=== PATIENT | male | born 1940 | race Caucasian/White ===

== ENCOUNTER 2019-01-16 11:07 | Inpatient (IN) | payer MEDICARE, MEDICAID ==
[~2019-01-16] VITALS: Ht 165.1 cm; Wt 70.3 kg
[2019-01-16 11:30] LABS: ABSOLUTE BASOPHILS 0.1 thou/uL (0.0-0.2); ABSOLUTE EOSINOPHILS 0.1 thou/uL (0.0-0.7); ABSOLUTE MONOCYTES 0.6 thou/uL (0.0-1.2); ABSOLUTE NEUTROPHILS 6.1 thou/uL (1.6-8.1); BASOPHILS 0.9 %; HEMATOCRIT 35.3 % (42.0-52.0); HEMOGLOBIN 12.1 gm/dL (14.0-18.0); LYMPHOCYTES 12.5 %; MCH 28.2 pg (26.0-34.0); MCHC 34.2 g/dL (28.0-37.0); MCV 82.6 fL (80.0-100.0); MONOCYTES 7.5 %; MPV 8.2 fl. (7.2-11.1); NUCLEATED RBCS 0 /100WBC; PLATELET COUNT* 225 thou/uL (150-400); POLYS 78.1 %; RBC 4.27 mil/uL (4.50-6.00); RDW-CV 15.7 % (10.5-14.5); WBC 7.9 thou/uL (4.0-11.0)
[2019-01-16 11:43] VITALS: BP 205/77
[2019-01-16 12:48] LABS: APTT 27.5 Seconds (25.0-31.3); PROTIME 10.7 Seconds (9.20-11.50)
[2019-01-16 13:16] LABS: URINE BILIRUBIN NEGATIVE (Negative); URINE BLOOD NEGATIVE (Negative); URINE CLARITY CLEAR; URINE COLOR YELLOW; URINE GLUCOSE-RANDOM NEGATIVE (Negative); URINE KETONES NEGATIVE (Negative); URINE LEUKOCYTES NEGATIVE (Negative); URINE NITRITE NEGATIVE (Negative); URINE PROTEIN NEGATIVE (Negative); URINE SPECIFIC GRAVITY 1.025 (1.005-1.030); URINE UROBILINOGEN 0.2 E.U./dl (0.2-1.0)
[2019-01-16 13:39] LABS: CALCIUM 8.5 mg/dL (8.5-10.1); POTASSIUM 3.8 mmol/L (3.5-5.1); TOTAL BILIRUBIN 0.3 mg/dL (<0.1-1.0); TOTAL PROTEIN 7.2 g/dL (6.4-8.2)
[2019-01-16 16:54] VITALS: BP 148/66
[2019-01-16 17:30] VITALS: BP 160/57
--- NOTE | 2019-01-16 18:38 | NUR ---
INITAL ASSESSMENT COMPLETED CHARTED. VSS. TRACING SR PVC'S ON MONITOR. NIH =2. PT DENIES SOA, N/V/D, CP. PT C/O RIGHT LEG PAIN THAT HE REPORTS HE HAS HAD FOR MONTHS BUT PAIN HAS GTTEN WORSE. HOURLY ROUNDING AND FALL PRECAUTIONS IN PLACE FOR PT SAFETY. CLWR.
--- NOTE | 2019-01-16 19:03 | 2DMMODE ---
[place] [address] 2 D/M-MODE ECHOCARDIOGRAM Name: DIANE ESTRADA Room: [address] [facility]#: [id number] Admission: 01/16/19 Attend Phys: Naseem Brennan, Discharge: Date of : 40 Date of Service: 01/16/19 1902 Report #: [id number] THIS REPORT FOR: //name// APPROVED REPORT Study performed: 01/16/2019 14:43:34 EXAM: Comprehensive 2D, Doppler, and color-flow Echocardiogram Patient Location: In-Patient Room #: er Status: stat BSA: 1.87 HR: 57 bpm BP: 178/72 mmHg Rhythm: NSR Other Information Study Quality: Good Indications CVA/TIA Echo Enhancing Agent Indication: Rule out Shunt Agent(s) / Amount(s) Used: Agitated Saline 10 cc 2D Dimensions IVSd: 10.42 (7-11mm) LVOT Diam: 18.81 (18-24mm) LVDd: 39.93 mm PWd: 12.19 (7-11mm) Ascending Ao: 29.74 (22-36mm) LVDs: 23.84 (25-40mm) Aortic Root: 35.46 mm Volumes Left Atrial Volume (Systole) LA ESV Index: 29.00 mL/m2 Aortic Valve AoV Peak Dagoberto.: 1.27 m/s AO Peak Gr.: 6.46 mmHg LVOT Max P.78 mmHg AO Mean Gr.: 3.51 mmHg LVOT Mean P.95 mmHg LVOT Max V: 0.97 m/s AO V2 VTI: 26.32 cm LVOT Mean V: 0.64 m/s MANPREET (VTI): 2.57 cm2 LVOT V1 VTI: 24.34 [place] [address] 2 D/M-MODE ECHOCARDIOGRAM Name: DIANE ESTRADA Room: [address] IN ..#: [id number] Admission: 01/16/19 Attend Phys: Naseem Brennan, Discharge: Date of : 40 Date of Service: 01/16/19 1902 Report #: [id number] Mitral Valve E/A Ratio: 0.64 MV Decel. Time: 235.67 ms MV E Max Dagoberto.: 0.85 m/s MV PHT: 68.34 ms MVA (PHT): 3.22 cm2 TDI E/Lateral E': 10.63 E/Medial E': 17.00 Medial E' Dagoberto.: 0.05 m/s Lateral E' Dagoberto.: 0.08 m/s Pulmonary Valve PV Peak Dagoberto.: 0.94 m/s PV Peak Gr.: 3.52 mmHg Tricuspid Valve RAP Estimate: 5.00 mmHg TR Peak Gr.: 28.14 mmHg RVSP: 33.00 mmHg PA Pressure: 33.00 mmHg Left Ventricle The left ventricle is normal size. There is normal LV segmental wall motion. Borderline concentric left ventricular hypertrophy. Left ventricular systolic function is normal. The left ventricular ejection fraction is within the normal range. LVEF is 60-65%. Grade I - abnormal relaxation pattern. Right Ventricle The right ventricle is normal size. The right ventricular systolic function is normal. Atria The left atrium size is normal. Interatrial septum is intact without evidence of ASD or PFO. The right atrium size is normal. Aortic Valve Mild aortic valve sclerosis. Mild aortic regurgitation. There is no aortic valvular stenosis. Mitral Valve There is mitral annular calcification. Mild mitral regurgitation. No evidence of mitral valve stenosis. Tricuspid Valve The tricuspid valve is normal in structure. Moderate tricuspid regurgitation. [place] [address] 2 D/M-MODE ECHOCARDIOGRAM Name: DIANE ESTRADA Room: [address] [place] [facility]#: [id number] Admission: 01/16/19 Attend Phys: Naseem Brennan, Discharge: Date of : 40 Date of Service: 01/16/19 1902 Report #: [id number] Pulmonic Valve The pulmonary valve is normal in structure. There is no pulmonic valvular regurgitation. Great Vessels The aortic root is normal in size. IVC is normal in size and collapses >50% with inspiration. Pericardium There is no pericardial effusion. <Conclusion> The left ventricle is normal size. Borderline concentric left ventricular hypertrophy. Left ventricular systolic function is normal. The left ventricular ejection fraction is within the normal range. LVEF is 60-65%. Grade I - abnormal relaxation pattern. The right ventricle is normal size. The left atrium size is normal. Mild aortic valve sclerosis. Mild aortic regurgitation. There is no aortic valvular stenosis. There is mitral annular calcification. Mild mitral regurgitation. No evidence of mitral valve stenosis. The tricuspid valve is normal in structure. Moderate tricuspid regurgitation. Mild pulmonary hypertension. IVC is normal in size and collapses >50% with inspiration. There is no pericardial effusion. There is normal LV segmental wall motion. Interatrial septum is intact without evidence of ASD or PFO. <ELECTRONICALLY SIGNED> By: Carlos A Nunez MD, FACC 01/16/191901 01 01 Carlos A Nunez MD, FACC /INF
--- NOTE | 2019-01-16 19:57 | EKG ---
[place] [address] ELECTROCARDIOGRAM REPORT Name: DIANE ESTRADA Room: [address] ADM IN M.R.#: [id number] Admission: 01/16/19 Attend Phys: Naseem Brennan MD Discharge: Date of : 40 Report #: [id number] THIS REPORT FOR: //name// 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 01/16/191955 1131 1131 Manuel Keith MD, FACC /EPI
[2019-01-16 20:20] VITALS: BP 127/55
[2019-01-17] VITALS: BP 108/54
[2019-01-17 04:00] VITALS: BP 138/46
--- NOTE | 2019-01-17 05:18 | NUR ---
ASSUMED CARE AT 2020H,ON RA AND TOLERATED.HIH OF 2.STILL WITH STUTTERING AND COMPLAIN OF BILATERAL THIGH.NOTED WITH GOOD PEDAL PULSE AND NO EDEMA.CONTINUE MONITORING AND TOWARD GOALS.CALL LIGHT WITHIN REACH.PT CAN WALK TO RESTROOM WITH THE USE OF HIS CANE.
[2019-01-17 05:29] LABS: CALCIUM 8.3 mg/dL (8.5-10.1); CREATININE 1.1 mg/dL (0.6-1.3); MAGNESIUM 1.9 mg/dL (1.8-2.4); POTASSIUM 4.1 mmol/L (3.5-5.1)
[2019-01-17 06:05] LABS: CHOLESTEROL 140 mg/dL (<200); HDL CHOLESTEROL 37 mg/dL (>40); LDL CHOLESTEROL 95 mg/dL (<100); SERUM ASSESSMENT Clear; TC:HDL 3.8 Ratio (Not establshd); TRIGLYCERIDE 42 mg/dL (<150); VLDL 8 mg/dL (<40)
[2019-01-17 07:00] VITALS: BP 140/74
--- NOTE | 2019-01-17 09:20 | NUR ---
INITIAL ASSESSMENT COMPLETED CHARTED. VSS. TRACING SR ON MONITOR. PT C/O OF BILATERAL THIGH PAIN. HOURLY ROUNDING AND FALL PRECAUTIONS IN PLACE FOR PT SAFETY. REFER TO COMPUTER CHARTING FOR FURTHER DETAILS. CLWR.
[2019-01-17 12:06] VITALS: BP 135/48
[2019-01-17 16:12] VITALS: BP 150/66
[2019-01-17 20:00] VITALS: BP 134/56
[2019-01-18] VITALS: BP 143/40
[2019-01-18 04:00] VITALS: BP 105/43
--- NOTE | 2019-01-18 04:51 | NUR ---
PT HAD C/O TO BILAT THIGHS WITH RELIEF WITH TOP MEDICATIONS. NO OTHER CONCERNS NOTED BY PT. CURRENTLY ASLEEP IN BED WITH BED ALRAM ON AND CALL LIGHT WITHIN REACH.
[2019-01-18 07:02] VITALS: BP 162/61
--- NOTE | 2019-01-18 08:24 | NUR ---
INITAL ASSESSMENT COMPLETED CHARTED. VSS. TRACING SR ON MONITOR. PT C/O ACHING IN BILATERAL HANDS. REFER TO COMPUTER CHARTING FOR FURTHER DETAILS. HOURLY ROUNDING AND FALL PRECAUTIONS IN PLACE FOR PT SAFETY. CLWR.
[2019-01-18 12:00] VITALS: BP 174/51
[2019-01-18 16:00] VITALS: BP 168/68
[2019-01-18 20:00] VITALS: BP 177/71
--- NOTE | 2019-01-18 20:00 | NUR ---
RECEIVED REPORT AND ASSUMED CARE OF PT, ASSESSMENT COMPLETED. PT SITTING UP IN CHAIR. VERY LOUD VOICE WHEN TALKING. HAPPY THAT HE WILL BE GOING TO [facility] TOM[facility]. ATTEMPTED TO EXPLAIN HE HAD TO QUALIFY AND BE APPROVED. KYM. NEURO WNL. TELEMETRY ON SHOWING SR. WILL CONT TO MONITOR AND ASSIST NEEDED.
--- NOTE | 2019-01-19 00:04 | NUR ---
RECIEVED REPORT FROM LORRAINE REECE RN AND ASSUMED CARE OF PT AT 2300.
--- NOTE | 2019-01-19 00:07 | NUR ---
PT ARRIVED TO ROOM 207 AND ADMITTED TO FLOOR AT 2315. PT ALERT AND ORIENTED X4. PT REPORTS BREATHING BETTER AFTER RECIEVING BREATHING TREATMENTS IN ED. PT DENIES PAIN OR DISCOMFORT AT THIS TIME. PT ORIENTED TO ROOM, CALL LIGHT AND BED CONTROLS. PT INSTRUCTED TO CALL STAFF BEFORE GETTING UP. CALL LIGHT IN REACH, PT DEMONSTRATES PROPER USE.
[2019-01-19 00:47] VITALS: BP 180/75
[2019-01-19 04:57] VITALS: BP 156/86
[2019-01-19 08:00] VITALS: BP 190/75
[2019-01-19] MEDS ORDERED: EXTRA STRENGTH85 GM TOP (10:50)
[2019-01-19] MEDS ORDERED: CLOPIDOGREL75 MG PO (10:50)
[2019-01-19] MEDS ORDERED: LIPITOR40 MG PO (10:50)
[2019-01-19] MEDS ORDERED: VITAMIN B-12500 MCG PO (10:50)
[2019-01-19] MEDS ORDERED: COENZYME Q-1030 MG PO (10:50)
[2019-01-19] MEDS ORDERED: ANECREAM5 GM TOP (10:50)
[2019-01-19] MEDS ORDERED: ADULT LOW DOSE81 MG PO (10:50)
[2019-01-19] MEDS ORDERED: THERA M PLUS T1 EAC2 PO (10:50)
[2019-01-19] MEDS ORDERED: LISINOPRIL5 MG PO (10:51)
[2019-01-19] MEDS ORDERED: HYDROCHLOROTHIA25 M2 PO (10:51)
--- NOTE | 2019-01-19 11:53 | NUR ---
Pt is A&O. Resides at home with family friends. Independent and active. Pt uses a cane for mobility. No hx of HH or SNF. Pt discharging today to [facility]. CM has repeatedly attempted to contact Pt's emergency contact, Waqar العلي, but the phone continues to ring busy. Faxed dc orders. Chart copied. Nurse report number is [phone]. Facility to berry picker Pt at 130pm
[2019-01-19 12:07] VITALS: BP 190/75
[2019-01-19 12:54] VITALS: BP 174/84
== END 2019-01-19 13:39 | DRG 69 ==
LOC: M.ERS 11:07 → M.TBA-ER 12:59 → M.2W 12:59
PROVIDERS: Family Medicine; ADMIT Internal Medicine
DX: G45.9 Transient cerebral ischemic attack, unspecified (principal); I16.1 Hypertensive emergency; I10 Essential (primary) hypertension; F98.5 Adult onset fluency disorder; I25.10 Atherosclerotic heart disease of native coronary artery without angina pectoris; E11.40 Type 2 diabetes mellitus with diabetic neuropathy, unspecified; K27.9 Peptic ulcer, site unspecified, unspecified as acute or chronic, without hemorrhage or perforation; E11.51 Type 2 diabetes mellitus with diabetic peripheral angiopathy without gangrene; E78.5 Hyperlipidemia, unspecified; I49.3 Ventricular premature depolarization; M79.18 Myalgia, other site; M79.605 Pain in left leg; M79.604 Pain in right leg; R53.81 Other malaise; M19.90 Unspecified osteoarthritis, unspecified site; Z87.891 Personal history of nicotine dependence

== ENCOUNTER 2019-04-15 06:12 | Inpatient (IN) | payer MEDICARE, MEDICAID ==
[~2019-04-15] VITALS: Ht 152.4 cm; Wt 70.8 kg
[~2019-04-15 06:12] MED LIST: ADULT LOW DOSE81 MG PO; ANECREAM5 GM TOP; CLOPIDOGREL75 MG PO; COENZYME Q-1030 MG PO; EXTRA STRENGTH85 GM TOP; HYDROCHLOROTHIA25 M2 PO; LIPITOR40 MG PO; LISINOPRIL5 MG PO; THERA M PLUS T1 EAC2 PO; VITAMIN B-12500 MCG PO
[2019-04-15 06:14] VITALS: BP 140/86
[2019-04-15] MEDS ORDERED: PROAIR HFA8.5 GM INH (06:21)
[2019-04-15 06:38] LABS: ABSOLUTE BASOPHILS 0.1 thou/uL (0.0-0.2); ABSOLUTE EOSINOPHILS 0.1 thou/uL (0.0-0.7); ABSOLUTE LYMPHOCYTES 0.9 thou/uL (0.8-5.3); ABSOLUTE MONOCYTES 0.6 thou/uL (0.0-1.2); ABSOLUTE NEUTROPHILS 7.6 thou/uL (1.6-8.1); BASOPHILS 0.8 %; EOSINOPHILS 1.4 %; HEMATOCRIT 30.2 % (42.0-52.0); HEMOGLOBIN 10.5 gm/dL (14.0-18.0); LYMPHOCYTES 9.2 %; MCH 29.2 pg (26.0-34.0); MCHC 34.9 g/dL (28.0-37.0); MCV 83.9 fL (80.0-100.0); MONOCYTES 6.8 %; MPV 7.5 fl. (7.2-11.1); NUCLEATED RBCS 0 /100WBC; PLATELET COUNT* 252 thou/uL (150-400); POLYS 81.8 %; RDW-CV 15.7 % (10.5-14.5); WBC 9.3 thou/uL (4.0-11.0)
[2019-04-15 06:47] LABS: CALCIUM 8.1 mg/dL (8.5-10.1); CREATININE 1.2 mg/dL (0.6-1.3); POTASSIUM 3.6 mmol/L (3.5-5.1)
[2019-04-15 06:50] LABS: PROTIME 10.7 Seconds (9.20-11.50)
[2019-04-15 06:58] LABS: ALBUMIN 2.8 g/dL (3.4-5.0); TOTAL BILIRUBIN 0.3 mg/dL (<0.1-1.0); TOTAL PROTEIN 7.2 g/dL (6.4-8.2)
--- NOTE | 2019-04-15 07:21 | NUR ---
MULTIPLE ATTEMPTS OF FINDING VENOUS ACCESS IN PT'S ANTECUBITAL HAS FAILED. SHANNAN FROM INFUSION IS COMING WITH ULTRASOUND TO FIND ACCESS FOR PATIENT TO HAVE CTA PERFORMED.
--- NOTE | 2019-04-15 09:51 | NUR ---
THIS NURSE RECEIVED REPORT FROM RASHAAD LOUIS RN. THIS NURSE TO ASSUME PT CARE AT THIS TIME.
--- NOTE | 2019-04-15 10:36 | EKG ---
[place] [address] ELECTROCARDIOGRAM REPORT Name: DIANE ESTRADA Room: [facility]#: [id number] Admission: 04/15/19 Attend Phys: Discharge: Date of : 40 Date of Service: 04/15/19631 Report #: [id number] THIS REPORT FOR: //name// [facility] ED Test Date: 2019-04-15 Test Time: 06:32:40 Pat Name: DIANE ESTRADA Department: Room: Gender: Wheel Aligner: : 1940 Requested By: Clarisse Escalante Order Number: [id number] MD: Hilario Gotti Measurements Intervals [place] Rate: 79 P: 54 RI: 161 QRS: 23 QRSD: 86 T: 33 QT: 385 QTc: 442 Interpretive Statements Sinus rhythm Compared to ECG 01/16/2019 11:31:33 No significant changes Electronically Signed On 04-15-2019 10:35:05 SWAHILI TEACHER by Hilario Gotti [email or web address] <ELECTRONICALLY SIGNED> By: Hilario Gotti MD, [facility] 04/15/19 1035 1 1 Hilario Gotti MD, FACC /EPI
[2019-04-15 12:36] LABS: URINE BILIRUBIN NEGATIVE (Negative); URINE BLOOD NEGATIVE (Negative); URINE CLARITY CLEAR; URINE COLOR YELLOW; URINE GLUCOSE-RANDOM NEGATIVE (Negative); URINE KETONES NEGATIVE (Negative); URINE LEUKOCYTES-REFLEX NEGATIVE (Negative); URINE NITRITE-REFLEX NEGATIVE (Negative); URINE PROTEIN NEGATIVE (Negative); URINE UROBILINOGEN 0.2 E.U./dl (0.2-1.0)
[2019-04-15 15:08] VITALS: BP 124/54; BP 128/46
--- NOTE | 2019-04-15 15:08 | NUR ---
REPORT GIVEN TO BANDAR TIM WHO IS TO ASSUME PT CARE INPATIENT NURSE.
[2019-04-15 15:30] VITALS: BP 127/86
--- NOTE | 2019-04-15 16:34 | NUR ---
ASSUMED PT CARE, REPORT RECEIVED FROM NURSE. PT IS AOX4. ON RA. TRACING SR ON DIRECTOR OF VITAL STATISTICS. VSS. COMPLAINS OF PAIN IN RIGHT GROIN AREA AND IN RIGHT BELLY. PT STATED THAT HE FELT OUT OF BED THIS AM AT 0400. HE WOKE UP FROM HIS SLEEP BEFORE THE FALL AND WAS FEELING THE PAIN. SCDS ON. URINAL GIVEN. OT/PT ORDERED. XRAY OF PELVIS AND HIP DONE AT BEDSIDE. IV FLUID INFUSING AT 100 PER HOUR. WILL GIVE PAIN MEDICINE WHEN IT IS DUE. WILL CONTINUE TO MONITOR PAIN.
[2019-04-15 20:00] VITALS: BP 137/53
[2019-04-16 00:13] VITALS: BP 162/63
[2019-04-16 04:35] LABS: ABSOLUTE BASOPHILS 0.1 thou/uL (0.0-0.2); ABSOLUTE EOSINOPHILS 0.2 thou/uL (0.0-0.7); ABSOLUTE LYMPHOCYTES 1.1 thou/uL (0.8-5.3); ABSOLUTE MONOCYTES 0.5 thou/uL (0.0-1.2); ABSOLUTE NEUTROPHILS 5.3 thou/uL (1.6-8.1); BASOPHILS 0.8 %; EOSINOPHILS 2.1 %; HEMATOCRIT 29.7 % (42.0-52.0); HEMOGLOBIN 10.4 gm/dL (14.0-18.0); LYMPHOCYTES 15.1 %; MCH 29.4 pg (26.0-34.0); MCHC 34.9 g/dL (28.0-37.0); MCV 84.3 fL (80.0-100.0); MONOCYTES 7.4 %; NUCLEATED RBCS 0 /100WBC; PLATELET COUNT* 224 thou/uL (150-400); POLYS 74.6 %; RBC 3.52 mil/uL (4.50-6.00); RDW-CV 15.3 % (10.5-14.5); WBC 7.2 thou/uL (4.0-11.0)
[2019-04-16 04:39] LABS: CREATININE 1.1 mg/dL (0.6-1.3)
[2019-04-16 04:41] VITALS: BP 150/68
[2019-04-16 08:00] VITALS: BP 139/47
--- NOTE | 2019-04-16 08:03 | NUR ---
ASSUMED PATIENT CARE AT 1900. ASSESSMENT COMPLETED CHARTED. PATIENT IS NSR ON THE MONITOR. HOURLY ROUNDING IN PLACE FOR PATIENT SAFETY. CLWR.
--- NOTE | 2019-04-16 09:10 | NUR ---
assumed patient care report received from nurse. pt is aox4. tracing sinus rythm on media monitor. on ra. up with assist x1. working with occupational therapist at this moment. skin is intact. on a heart healthy diet. left forearm iv line is patent, ns infusing at 100 per hour. patient complains of pain in right groin area and states that the muscle rub is for his left shoullder and not for his hip because it valderrama more. muscle rub applied on left shoulder. pain medicine will be given at due time. call light within reach. will continue to monitor patient.
--- NOTE | 2019-04-16 10:27 | NUR ---
Pt is A&O. Resides at home with family. Independent and active. Pt has a home neb. No hx of HH. Hx of skilled at [facility]. Goal is home at mi, no needs anticipated.
[2019-04-16 12:00] VITALS: BP 128/44
[2019-04-16 16:00] VITALS: BP 138/76
--- NOTE | 2019-04-16 17:20 | NUR ---
pain medicine given see emar. pt states relief. physical therapist worked with patient. pt is back in bed after lunch time. iv fluid infusing. no complaint. pt went for ordered imaging testings. pt is back in room. ate diner. scds back on. dom rosales to monitor.
[2019-04-16 20:00] VITALS: BP 124/52
[2019-04-17] VITALS: BP 112/47
[2019-04-17 04:00] VITALS: BP 108/46
--- NOTE | 2019-04-17 05:49 | NUR ---
ASSESSMENTS COMPLETED AT BEDSIDE PLEASE SEE CHARTING. MEDICATIONS ADMINISTERED PER MAR. HOURLY ROUNDING COMPLETED FOR PT SAFETY, CALL LIGHT WITHIN REACH.
[2019-04-17 08:00] VITALS: BP 140/44
[2019-04-17 12:00] VITALS: BP 122/41
--- NOTE | 2019-04-17 14:44 | NUR ---
Pt now wanting to dc to skilled at dc, Pt wants to dc to [facility] in [place] p:[phone], f: . CM faxed the referral, waiting on decision to accept Pt. Anticipate that Pt will be ready to dc tomorrow. Chart will need to be copied, nurse report is above. If family cannot transport, uses [facility] [phone].
[2019-04-17 16:00] VITALS: BP 100/48
--- NOTE | 2019-04-17 17:38 | NUR ---
assumed pt care report received from nurse pt is aox4 on ra. tracing sr on materials intern. complains of pain level 8 in r groin area and in left shoulder. muscle rub, lidocaine cream and fentanyl given as ordered throughtout the shift. pt up to chair. up and ambulate with nurse staff with gaitbelt. no further compaint. pt has good appetite. received bed bath today. has good urine output see chart. had three owel movement today. plan per dr to discharge pt the following day. will continue to monitor pt . safety in place. call light at reach. chair alarm on at all time
[2019-04-17 20:00] VITALS: BP 120/53
[2019-04-18 00:36] VITALS: BP 155/63
[2019-04-18 04:32] VITALS: BP 142/54
--- NOTE | 2019-04-18 05:33 | NUR ---
PT HAD INCREASE TO PAIN LEVEL THIS SHIFT. REPORTING PAIN AT A 10 OUT OF 10 AND REQUESTING MORE PAIN MEDICATION. PT STATED THAT THE PAIN HAS MOVED FROM THE RIGHT GROIN TO HIS LEFT SIDE AND INTO HIS SHOULDER. PT REPORTS NO CHEST PAIN. PT HAS REQUIRED PRN MEDICATION Q 4 HOURS AND STATED THAT IT IS TOO FAR BETWEEN DOSES. PT IS CURRENTLY IN BED WITH BED ALARM ON AND CALL LIGHT WITHIN REACH.
[2019-04-18 08:00] VITALS: BP 151/63
--- NOTE | 2019-04-18 10:12 | NUR ---
ASSUMED PT CARE REPORT RECEIVED FROM NURSE. PT IS AOX4 ON RA. COMPLAINS OF PAIN IN R GROIN AND LEFT SHOULDER. LIDOCAINE CREAM APPLIED AND PO NORCO GIVEN ORDERED. PT OUT OF BED TO CHAIR POSITION. SPOKE WITH SOMEONE AT [facility] IN [place] TODAY AND WAS TOLD TO FAX THE DISCHARGE ORDER ONCE ORDERED. PT MADE AWARE OF DISCHARGE PLANS. PT AGREES. VSS. TRACING SR ON HOP SORTER. CALL LIGHT AT REACH. WILL CONTINUE TO MONITOR PT
[2019-04-18] MEDS ORDERED: TRAMADOL 50 MG50 MG PO (10:25)
[2019-04-18] MEDS ORDERED: HYDROCODON-ACE1 EAC7 PO (10:25)
--- NOTE | 2019-04-18 10:38 | NUR ---
discharge summary [facility] [place] rest and exercise ordered prior to discharge. pt does not need the rest and exercise per respiratory therapist since pt is going to a rehab. pt has not been wearing o2 here in hospital during his stay. dr who ordered made aware of that.
[2019-04-18 11:28] VITALS: BP 151/63
--- NOTE | 2019-04-18 12:19 | NUR ---
discharge instrucions given to pt. dc papers placed in envelop for [facility] facility. iv line removed. heart monitor retrieved. meat pickler time set by withee sup for 1300. pt in room awaiting for meat pickler . belongings packed. report given to Gillian young [place].
[2019-04-18 12:51] VITALS: BP 151/63
--- NOTE | 2019-04-18 12:52 | NUR ---
pt left floor at 1250 accompanied by transporter on wheelchair. belongings brought along
== END 2019-04-18 12:50 | DRG 537 ==
LOC: M.ERS 06:12 → M.TBA-ER 10:22 → M.2W 10:22
PROVIDERS: Emergency Medicine; ADMIT Internal Medicine
DX: S73.191A Other sprain of right hip, initial encounter (principal); I74.5 Embolism and thrombosis of iliac artery; E44.0 Moderate protein-calorie malnutrition; I65.21 Occlusion and stenosis of right carotid artery; I25.10 Atherosclerotic heart disease of native coronary artery without angina pectoris; E11.51 Type 2 diabetes mellitus with diabetic peripheral angiopathy without gangrene; M19.90 Unspecified osteoarthritis, unspecified site; W18.39XA Other fall on same level, initial encounter; I70.209 Unspecified atherosclerosis of native arteries of extremities, unspecified extremity; I10 Essential (primary) hypertension; Z79.82 Long term (current) use of aspirin; Z79.899 Other long term (current) drug therapy; Z95.1 Presence of aortocoronary bypass graft; Z87.891 Personal history of nicotine dependence; Z87.11 Personal history of peptic ulcer disease; Y93.89 Activity, other specified; Y92.89 Other specified places as the place of occurrence of the external cause; Y99.8 Other external cause status

== ENCOUNTER 2020-02-12 14:38 | Inpatient (IN) | payer MEDICARE, MEDICAID ==
[~2020-02-12] VITALS: Ht 167.6 cm; Wt 73.6 kg
[~2020-02-12 14:38] MED LIST changes: +HYDROCODON-ACE1 EAC7 PO; +PROAIR HFA8.5 GM INH; +TRAMADOL 50 MG50 MG PO
[2020-02-12 14:42] VITALS: BP 180/61
[2020-02-12 15:07] LABS: ABSOLUTE BASOPHILS 0.1 thou/uL (0.0-0.2); ABSOLUTE EOSINOPHILS 0.1 thou/uL (0.0-0.7); ABSOLUTE LYMPHOCYTES 1.1 thou/uL (0.8-5.3); ABSOLUTE MONOCYTES 0.4 thou/uL (0.0-1.2); ABSOLUTE NEUTROPHILS 7.2 thou/uL (1.6-8.1); BASOPHILS 0.7 %; EOSINOPHILS 1.2 %; HEMATOCRIT 39.7 % (42.0-52.0); HEMOGLOBIN 13.2 gm/dL (14.0-18.0); LYMPHOCYTES 11.8 %; MCH 29.6 pg (26.0-34.0); MCHC 33.2 g/dL (28.0-37.0); MCV 89.1 fL (80.0-100.0); MONOCYTES 4.8 %; MPV 8.8 fl. (7.2-11.1); NUCLEATED RBCS 0 /100WBC; PLATELET COUNT* 242 thou/uL (150-400); POLYS 81.5 %; RBC 4.45 mil/uL (4.50-6.00); RDW-CV 14.3 % (10.5-14.5); WBC 8.9 thou/uL (4.0-11.0)
[2020-02-12 15:14] LABS: CALCIUM 8.8 mg/dL (8.5-10.1); CREATININE 1.1 mg/dL (0.6-1.3); POTASSIUM 3.9 mmol/L (3.5-5.1)
[2020-02-12 15:24] LABS: ALBUMIN 3.4 g/dL (3.4-5.0); TOTAL BILIRUBIN 0.4 mg/dL (<0.1-1.0); TOTAL PROTEIN 7.5 g/dL (6.4-8.2)
[2020-02-12 20:00] VITALS: BP 165/65
[2020-02-12 20:58] VITALS: BP 128/52
[2020-02-12] MEDS ORDERED: PLAVIX 75 MG TA75 MG PO (21:36)
[2020-02-12] MEDS ORDERED: LISINOPRIL5 MG PO (21:36)
[2020-02-12] MEDS ORDERED: ASA81BEC PO (21:37)
[2020-02-12] MEDS ORDERED: HYDROCHLOROTHIA25 M2 PO (21:38)
[2020-02-12 22:00] VITALS: BP 165/65
[2020-02-13] VITALS (7 sets, daily range): BP systolic 126–147; BP diastolic 36–56
--- NOTE | 2020-02-13 04:12 | NUR ---
RECEIVED REPORT FROM MILADY PORTILLO. PT TRANSFERRED TO RM 218. PT A&OX4. ON/OFF STUTTERING NOTED- REPORTED FROM ER. VSS. SHEET ROCKER IN PLACE. ADMISSION HISTORY & PHYSICAL ASSESSMENT COMPLETED AND CHARTED. ORIENTED TO ROOM & CALL LIGHT. PT ON RA. PT TRACING SR ON TELE. PT UPADLIB TO RESTROOM. PT COMPLAINED OF BACK PAIN-MED GIVEN PER MAR. PT NOT SURE WITH HOME MEDS NAME & DOSES. PT ALSO DENIED BEING DIABETIC (WAS INDICATED IN PT HISTORY). CALL LIGHT WITHIN REACH.
--- NOTE | 2020-02-13 09:39 | EKG ---
[place] [address] ELECTROCARDIOGRAM REPORT Name: DIANE ESTRADA Room: [address]R.#: [id number] Admission: 02/12/20 Attend Phys: Brigitte Perez Discharge: Date of : 40 Date of Service: 02/12/20 1442 Report #: [id number] THIS REPORT FOR: //name// [facility] ED Test Date: 2020-02-12 Test Time: 14:42:35 Pat Name: DIANE ESTRADA Department: Room: [facility] Gender: M Felt Checker: MU : 1940 Requested By: Kelechi Teixeira Order Number: [id number] MD: Hilario Gotti Measurements Intervals [place] Rate: 80 P: 54 [place]: 144 QRS: 47 QRSD: 71 T: 45 QT: 383 QTc: 442 Interpretive Statements Sinus rhythm Compared to ECG 04/15/2019 06:32:40 No significant changes Electronically Signed On 02-13-2020 9:39:24 EXTRACTIONS TECHNOLOGIST by Hilario Gotti [email or web address] <ELECTRONICALLY SIGNED> By: Hilario Gotti MD, [facility] 02/13/20 0939 1442 1442 Hilario Gotti MD, [facility] /EPI
[2020-02-13] MEDS ORDERED: LIPITOR40 MG PO (11:18)
[2020-02-13] MEDS ORDERED: FLOMAX0.4 MG PO (11:19)
[2020-02-13] MEDS ORDERED: HYDROCHLOROTHIA25 M2 PO (11:29)
--- NOTE | 2020-02-13 13:45 | NUR ---
CM SPOKE TO THE PT TO DISCUSS CM ASSESSMENT. PT A&O, AND INDEPENDENT WITH ADL'S. PT RESIDES AT HOME ALONE. PT USES [facility]. NO OTHER DME. PT HAS 0 HX OF HH OR SNF. CM WILL REMAIN AVAILABLE TO ASSIST AND FOLLOW NEEDED.
[2020-02-14 04:00] VITALS: BP 145/51
--- NOTE | 2020-02-14 05:21 | NUR ---
ASSUMED CARE OF PT AFTER REPORT AT 1930. PT A&OX4. VSS. PHYSICAL ASSESSMENT COMPLETED AND CHARTED. PT ON RA. PT TRACING SR ON TELE. PT UPADLIB TO RESTROOM. PT DENIES PAIN AT THIS TIME. CALL LIGHT WITHIN REACH.
[2020-02-14 11:22] VITALS: BP 145/51
--- NOTE | 2020-02-14 12:00 | CON ---
[address] [address] CONSULTATION Name: DIANE ESTRADA Room: [address] Yosi Menezes#: [id number] Admission: 02/12/20 Attend Phys: Nancy Loaiza Discharge: Date of : 40 Report #: [id number] THIS REPORT FOR: cc: FAM - No family physician/PCP FAM - No family physician/PCP ~ Hilario Gotti MD [facility] DATE OF SERVICE: 02/14/2020 CARDIOLOGY CONSULTATION HISTORY OF PRESENT ILLNESS: The patient is a 79-year-old single white male who came to the hospital complaining that he was shaking all over and was having stuttering of his speech. The patient has a long and extensive past medical history. He notes in 2000, he had a syncopal spell and was admitted to a hospital in [place]. He had quadruple coronary artery bypass surgery performed there. He has had no stents placed since that time. He also has a history of PAD and has had previous stents placed in both legs in [place], [place]. The patient has had several hospitalizations here at [facility] in the past. He was here a year ago in 01/2019 with a TIA. 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 He was started on Plavix and was discharged to alf. The patient was admitted here in April of this year with leg pain, felt to be secondary to arthritis. He was seen by Vascular Surgery. He was treated conservatively. The patient states he lives by himself and is able to care for himself. He actually came to the Emergency Room 2 days ago. He states he had been out in a cold, smoking when he started to shake. His voice was noted to stutter. He called the ambulance and brought here to [facility] for further evaluation and treatment. He does have occasional chest heaviness. It is not related to exertion or meals. There is no radiation. He does note occasional shortness of breath and cough. He has had no palpitations or syncope. He does complain of bilateral leg pain with exertion. He does have a chronic cough, but no recent fever. He apparently was admitted to [facility] in [place], [place] last week for 4 days with pneumonia. PAST MEDICAL HISTORY: Previous surgery on his shoulder. He has a history of hypertension, hyperlipidemia. No history of diabetes. CURRENT MEDICATIONS: Consist of hydrocodone, Plavix, aspirin, Lipitor, hydrochlorothiazide, lisinopril, albuterol inhaler. ALLERGIES: He has no known drug allergies. FAMILY HISTORY: [place] [address] CONSULTATION Name: DIANE ESTRADA Room: [address] Yosi Menezes#: [id number] Admission: 02/12/20 Attend Phys: Nancy Loaiza Discharge: Date of : 40 Report #: [id number] SOCIAL HISTORY: He is , lives in [place], [place] by himself, smokes half pack of cigarettes a day. Rarely drinks alcohol. No illicit drug use. REVIEW OF SYSTEMS: He apparently has had no history of stroke. He does have COPD. No history of liver disease, kidney disease, cancer, chronic skin condition. PHYSICAL EXAMINATION: GENERAL: Revealed an elderly male, lying in bed, appeared in no acute distress. VITAL SIGNS: He had a blood pressure of 140/60, pulse is 80. He is afebrile. HEENT: He was anicteric. Conjunctivae are pink. Mucous membranes moist. NECK: Veins do not appear distended, bilateral carotid bruits are heard. CHEST: Decreased breath sounds bilaterally. CARDIOVASCULAR: Regular rate and rhythm, grade 2 systolic ejection murmur. ABDOMEN: Soft. EXTREMITIES: Had no edema. Dorsalis pedis pulse cannot be palpated. SKIN: Cool and dry. NEUROLOGIC: Nonfocal. ECG on admission 2 days ago showed a sinus rhythm, nonspecific ST-segment changes. On the monitor, he appears to be in a sinus rhythm. Compared to ECG done in 2019, there was no significant change. His workup, he actually had an echocardiogram done a year ago in 2019 here at [facility] that showed left ventricular hypertrophy, ejection fraction of 60%, aortic sclerosis, mild mitral regurgitation, moderate tricuspid regurgitation. No evidence of a shunt by bubble study. His workup in the Emergency Room, he had a portable chest x-ray that showed normal heart size, clear lung rouse. Carotid Doppler study performed yesterday showed occlusion of right internal carotid artery, 50-69% stenosis in left internal carotid artery. Previous ABIs in 04/2019 showed right JANE was only 0.56, left was 0.5. The patient had a previous CT scan of the head performed a year ago that showed no acute abnormality. LABORATORY WORK: Sodium 140, creatinine 1.1. Troponins all 0.06. His white blood cell count 8.9, hemoglobin 13.2. IMPRESSION AND RECOMMENDATIONS: 1. Chest pain. Previous bypass surgery. No evidence of acute myocardial infarction. Consider repeat cardiac catheterization. 2. Tremors. Possibly related to albuterol. 3. Previous bilateral carotid stenosis. The patient followed by Vascular Surgery. 4. Chronic obstructive pulmonary disease. 5. Hypertension. The patient is on an AKUA inhibitor, diuretic and beta-ernestine. [address] [address] CONSULTATION Name: DIANE ESTRADA Room: [address] Yosi Menezes#: [id number] Admission: 02/12/20 Attend Phys: Nancy Loaiza Discharge: Date of : 40 Report #: [id number] 6. Hyperlipidemia. The patient is on a statin drug. 7. Tobacco abuse. 8. Peripheral arterial disease with previous stents. The patient was easily reproduced claudication. Followed by Vascular Surgery. <ELECTRONICALLY SIGNED> By: Hilario Gotti MD, FACC 02/14/20 1200 0929 [id number] Gotti MD, FACC /nt
[2020-02-14 17:10] VITALS: BP 155/61
[2020-02-14 20:00] VITALS: BP 131/56
[2020-02-15] VITALS (13 sets, daily range): BP systolic 122–164; BP diastolic 39–63
--- NOTE | 2020-02-15 04:40 | NUR ---
ASSUMED CARE OF PT AFTER REPORT [id number]. PT A&OX4. VSS. PHYSICAL ASSESSMENT COMPLETED AND CHARTED. PT ON RA. PT TRACINGSR ON TELE. PT UPADLIB TO RESTROOM. PT INSTRUCTED ON NPO POST MIDNIGHT FOR CARDIAC CATH. COMMUNICATES UNDERSTANDING. CALL LIGHT WITHIN REACH.
[2020-02-15 05:33] LABS: CHOLESTEROL 128 mg/dL (<200); HDL CHOLESTEROL 52 mg/dL (>40); LDL CHOLESTEROL 68 mg/dL (<100); TC:HDL 2.5 Ratio (Not establshd); TRIGLYCERIDE 43 mg/dL (<150); VLDL 9 mg/dL (<40)
[2020-02-15 05:35] LABS: SERUM ASSESSMENT Clear
[2020-02-15 10:07] LABS: HEMATOCRIT 31.3 % (42.0-52.0); MCH 29.8 pg (26.0-34.0); MCHC 33.5 g/dL (28.0-37.0); MCV 88.9 fL (80.0-100.0); MPV 9.6 fl. (7.2-11.1); RBC 3.52 mil/uL (4.50-6.00); RDW-CV 14.7 % (10.5-14.5); WBC 14.1 thou/uL (4.0-11.0)
[2020-02-15 10:08] LABS: HEMOGLOBIN 10.5 gm/dL (14.0-18.0)
[2020-02-15 10:23] LABS: ALBUMIN 2.5 g/dL (3.4-5.0); APTT 21.1 Seconds (25.0-31.3); CALCIUM 8.1 mg/dL (8.5-10.1); POTASSIUM 4.8 mmol/L (3.5-5.1); PROTIME 11.1 Seconds (9.20-11.50); TOTAL BILIRUBIN 0.4 mg/dL (<0.1-1.0); TOTAL PROTEIN 5.6 g/dL (6.4-8.2)
--- NOTE | 2020-02-15 12:53 | NUR ---
CM INFORMED DURING PRIME ROUNDING OF THE PLAN OF CAR FOR THE PT. CARDIOLOGY CONULTED. PLANNED CATH PROCEDURE TODAY. POSSIBLE D/C POST PROCEDURE. NO D/C PLANNING NEEDS ANTICIPATED. CM WILL REMAIN AVAILABLE TO ASSIST AND FOLLOW NEEDED.
--- NOTE | 2020-02-15 15:24 | CARD ---
[address] [address] CARDIAC CATH REPORT Name: DIANE ESTRADA Room: [address] ADM IN M.R.#: [id number] Admission: 02/14/20 Attend Phys: Nancy Loaiza Discharge: Date of : 40 Report #: [id number] THIS REPORT FOR: cc: FAM - No family physician/PCP FAM - No family physician/PCP ~ Hilario Gotti MD [facility] APPROVED REPORT Study performed: 02/15/2020 11:22:28 Patient Details Patient Status: In-Patient Room #: The patient is a 79 year-old male Event Personnel Hilario Gotti Light Truck Driver, Parker Rodriguez RN RN, Javier Caputo GAS SPECIALIST Scrub, Mis Weathers RTR Monitor, William River RTR Monitor Procedures Performed LUIZ Revasc Graft Addl Branch DIAG 1 C9605 SVGREVADDL LIUZ Revasc Graft Single RCA C9604 SVGREVSING Hemostasis w/ Mynx Indication Chest pain Risk Factors Cerebrovascular DiseasePeripheral Vascular Disease, Hypercholesterolemia, Coronary Artery Disease, Tobacco History () Previous Procedures/Diagnoses Previous CABGPrevious PCI Admission/Lab Medications/Medications given during procedure Aspirin, Lipid Lowering Agents, Thrombin Inhibitors, Platelet Aff. Inhib., Lidocaine Subcut 14 ml, Oxygen Nasal cannula 2 l per min, 0.9% Sodium Chloride IV 75 ml per hr, Angiomax IV 11 ml, Aspirin PO 81 mg, Plavix PO 75 mg Procedure Narrative The patient was brought electively to the Cardiac Catheterization Laboratory and was prepped and draped in a sterile manner. The right femoral was infiltrated with 2% [place] [address] CARDIAC CATH REPORT Name: DIANE ESTRADA Room: [address] IN [facility].#: [id number] Admission: 02/14/20 Attend Phys: Nancy Loaiza Discharge: Date of : 40 Report #: [id number] 6fr Ultimum Sheath sheath was inserted into the right femoral artery. Coronary angiography was performed using coronary diagnostic catheters. The right coronary system was accessed and visualized with a Diagnostic JR4 6Fr catheter. The left coronary system was accessed and visualized with a Diagnostic JL4 6Fr catheter. The left ventricle was accessed and visualized with a Diagnostic JR4 6Fr catheter. Left ventricular/Aortic Valve gradient assessed via catheter pullback. Closure device was deployed with a 6 Fr Mynx. The patient tolerated the procedure well and there were no complications associated with the procedure. There was no hematoma. Intraoperative Conscious Sedation Sedation start time: 1135 Case end Time: 1238 Fluoro Time: 12.8 minutes Dose: DAP 68033 cGycm2 1467.69 mGy Contrast Type and Amount: Omnipaque 250 ml Coronary Angiography The patient's coronary anatomy is co- dominant. [place] Artery Percent Stenosis Grafts (Complete if Previous CABG=Yes: Percent Stenosis) 1. patent VASQUEZ graft to the lad, although a large intercostal branch was noted 2. patent SVG to the diagonal artery was noted with a ostial 50% stenosis and a mid 70% stenosis 3. patent SVG to the RCA was noted with a mid 80% stenosis 4. patent SVG to the circumflex was noted with a stent in the mid portion that had a 30% restenosis Diagnostic Cath Left Main 50% distal stenosis LAD 80% proximal stenosis Circumflex 70% proximal stenosis OM2 small vessel with proximal 90% stenosis Right Coronary 100% chronic occlusion RPLV small vessel with a stent that had a 80% mid restenosis Left Ventriculography Left Ventriculography was not performed. Hemodynamics The aortic pressure is 161/53 mmHg with a mean of 90 mmHg. The left ventricular pressure is 157/10 mmHg with [place] [address] CARDIAC CATH REPORT Name: DIANE ESTRADA Room: [address] IN [facility]#: [id number] Admission: 02/14/20 Attend Phys: Nancy Loaiza Discharge: Date of : 40 Report #: [id number] ventricular end diastolic pressure is 16 mmHg. There was no gradient across the aortic valve upon pullback. Pullback from the left ventricle to the aorta revealed no gradient across the aortic valve. PCI Technique Lesion Anticoagulation was achieved with Angiomax. Patient was preloaded with Plavix. Percutaneous coronary intervention was performed on the mid segment of the SVG to the RCA. The lesion stenosis prior to intervention was 80% with MARION 3 flow. A 6F RCB 100CM Guide Catheter was used to engage the SVG ostium. A IG: BMW 190cm Interventional Guidewire was used to cross the lesion. STENT DEPLOYMENT A drug-eluting stent Dutton RX Stent 3.0X22mm was inserted and inflated up to 16.00atm for 14seconds. Repeat angiography revealed the following post-stent deployment results: 0% stenosis. Additional Inflation: 18.00atm for 9seconds. Additional Inflation: 22.00atm for 16seconds. Final angiography reveals 0 % stenosis with MARION 3 flow. PCI Technique Lesion 2 Percutaneous Coronary Intervention was performed on the Prox 1/3 of SVG to the DIAG. Percutaneous coronary intervention was performed on the svg to the diagonal branch. The lesion stenosis prior to intervention was 70% with MARION 3 flow. A 6F LCB 100CM Guide Catheter was used to engage the SVG ostium. A IG: BMW 190cm Interventional Guidewire was used to cross the lesion. Stent Deployment A drug-eluting stent David RX Stent 2.5X12mm was inserted and inflated up to 13atm for 15seconds. Repeat angiography revealed the following post-stent deployment results: 0% stenosis. Final angiography reveals 0 % stenosis with MARION 3 flow. Conclusion 1. 80% stenosis noted of the proximal lad, 70% stenosis of the proximal circumflex, and chronically occluded proximal RCA 2. patent vasquez to the lad 3. SVG to the diagonal branch had a mid 70% stenosis 4. SVG to the circumflex artery had a mid stent with no significant restenosis [facility] [address] [place] [address] CARDIAC CATH REPORT Name: DIANE ESTRADA Room: M.218-P ADM IN M.R.#: [id number] Admission: 02/14/20 Attend Phys: Nancy Loaiza Discharge: Date of : 40 Report #: [id number] 5. SVG to the RCA had a mid 80% stenosis 6. successful placement of drug eluting stents in the SVG to the RCA, and SVG to the diagonal artery. Recommendations Cardiac Rehabilitation Referral Aggressive Medical Therapy <ELECTRONICALLY SIGNED> By: Hilario Gotti MD, [facility] 02/15/20 1524 1524 1524Dsadie Gotti MD, FAC /INF
[2020-02-16] VITALS: BP 131/44
[2020-02-16 04:00] VITALS: BP 135/46
--- NOTE | 2020-02-16 04:46 | NUR ---
ASSUMED CARE OF PT AFTER REPORT AT 1930. PT A&OX4. VSS. PHYSICAL ASSESSMENT COMPLETED AND CHARTED. PT ON RA. PT TRACING SR/SB ON TELE. PT UP ADLIB TO RESTROOM. PT COMPLAINED OF STOMACH PAIN-MED GIVEN PER APR. POST CATH SITE TO RIGHT CLEAN, DRY & INTACT. CALL LIGHT WITHIN REACH.
[2020-02-16 05:32] LABS: HEMATOCRIT 30.2 % (42.0-52.0); MCH 30.1 pg (26.0-34.0); MCHC 33.3 g/dL (28.0-37.0); MCV 90.2 fL (80.0-100.0); MPV 9.7 fl. (7.2-11.1); NUCLEATED RBCS 0 /100WBC; PLATELET COUNT* 162 thou/uL (150-400); RBC 3.34 mil/uL (4.50-6.00); RDW-CV 14.9 % (10.5-14.5); WBC 11.3 thou/uL (4.0-11.0)
[2020-02-16 05:51] LABS: CALCIUM 8.3 mg/dL (8.5-10.1); CREATININE 1.1 mg/dL (0.6-1.3); POTASSIUM 4.7 mmol/L (3.5-5.1)
[2020-02-16 06:55] LABS: ABSOLUTE LYMPHOCYTES 0.5 thou/uL (0.8-5.3); ABSOLUTE MONOCYTES 0.6 thou/uL (0.0-1.2); ABSOLUTE NEUTROPHILS 10.3 thou/uL (1.6-8.1); METAMYELOCYTES 1 %; PLATELET ESTIMATE ADEQUATE
[2020-02-16 08:37] VITALS: BP 161/53
[2020-02-16] MEDS ORDERED: METOPROLOL TART25 MG PO (09:42)
[2020-02-16] MEDS ORDERED: LISINOPRIL5 MG PO (09:42)
[2020-02-16] MEDS ORDERED: EFFEXOR XR37.5 MG PO (09:42)
[2020-02-16] MEDS ORDERED: PROTONIX40 M2 PO (09:47)
[2020-02-16] MEDS ORDERED: AUGMENTIN 875-1 EACH PO (09:47)
[2020-02-16] MEDS ORDERED: PREDNISONE 10 M10 MG PO (09:47)
[2020-02-16 10:15] VITALS: BP 122/41
[2020-02-16 13:03] VITALS: BP 122/41
--- NOTE | 2020-02-16 13:26 | NUR ---
CM INFORMED DURING PRIME ROUNDING OF THE PLAN OF CARE FOR THE PT. PLAN FOR PT TO D/C HOME TODAY WITH SELF-CARE. PT IN AGREEMENT AND DECLINES NEED FOR HH. CM WILL REMAIN AVAILABLE TO ASSIST AND FOLLOW NEEDED.
--- NOTE | 2020-02-16 13:49 | NUR ---
PT DCD TO HOME IN STABLE CONDITION. DC INSTRUCTIONS,FOLLOW UP INSTRUCTIONS,PRESCRIPTIONS GIVEN,APPOINTMENTS REVIEWED,ACTIVITY AND DIET REVIEWED.PT TAKEN BY WC TO FAMILY VEHICLE WITH ALL OF BELONGINGS.
--- NOTE | 2020-02-16 14:01 | EKG ---
[place] [address] ELECTROCARDIOGRAM REPORT Name: DIANE ESTRADA Room: [address] ADM IN M.R.#: [id number] Admission: 02/14/20 Attend Phys: Brigitte Perez Discharge: Date of : 40 Date of Service: 02/16/20511 Report #: [id number] THIS REPORT FOR: //name// [facility] Test Date: 2020-02-16 Test Time: 05:12:39 Pat Name: DIANE ESTRADA Department: Room: [address] Gender: M Customer Care Associate: COSME : 1940 Requested By: Hilario Gotti Order Number: [id number] Wilfrid MD: Manuel Keith Measurements Intervals [place] Rate: 53 P: 69 [place]: 149 QRS: 42 QRSD: 76 T: 36 QT: 477 QTc: 448 Interpretive Statements Sinus rhythm Probable left atrial enlargement Borderline low voltage, extremity leads Compared to ECG 02/12/2020 14:42:35 No significant changes Electronically Signed On 02-16-2020 14:01:37 FILTER TIP INSPECTOR by Manuel Keith [email or web address] <ELECTRONICALLY SIGNED> By: Manuel Keith MD, FAC 02/16/20 1401 1 1 Manuel Keith MD, [facility] /EPI
== END 2020-02-16 13:50 | disposition home or self-care (01) | DRG 246 ==
LOC: M.ERS 14:38 → M.TBA-ER 17:05 → M.2W 21:34
PROVIDERS: Emergency Medicine Emergency Medical Services; Internal Medicine; Internal Medicine Cardiovascular Disease; ADMIT Internal Medicine; ATTEND Internal Medicine
PROC: 4A023N7 Measurement of Cardiac Sampling and Pressure, Left Heart, Percutaneous Approach (ICD-10-PCS; principal; 2020-02-15)
PROC: B2131ZZ Fluoroscopy of Multiple Coronary Artery Bypass Grafts using Low Osmolar Contrast (ICD-10-PCS; principal; 2020-02-15)
PROC: 027135Z Dilation of Coronary Artery, Two Arteries with Two Drug-eluting Intraluminal Devices, Percutaneous Approach (ICD-10-PCS; principal; 2020-02-15)
PROC: B2111ZZ Fluoroscopy of Multiple Coronary Arteries using Low Osmolar Contrast (ICD-10-PCS; principal; 2020-02-15)
PROC: B2181ZZ Fluoroscopy of Left Internal Mammary Bypass Graft using Low Osmolar Contrast (ICD-10-PCS; principal; 2020-02-15)
DX: I25.110 Atherosclerotic heart disease of native coronary artery with unstable angina pectoris (principal); I50.31 Acute diastolic (congestive) heart failure; J44.1 Chronic obstructive pulmonary disease with (acute) exacerbation; F41.9 Anxiety disorder, unspecified; I11.0 Hypertensive heart disease with heart failure; E11.40 Type 2 diabetes mellitus with diabetic neuropathy, unspecified; E78.5 Hyperlipidemia, unspecified; F17.210 Nicotine dependence, cigarettes, uncomplicated; R25.1 Tremor, unspecified; I65.23 Occlusion and stenosis of bilateral carotid arteries; E11.51 Type 2 diabetes mellitus with diabetic peripheral angiopathy without gangrene; E78.00 Pure hypercholesterolemia, unspecified; Z20.822 Contact with and (suspected) exposure to COVID-19; Z79.01 Long term (current) use of anticoagulants; Z95.1 Presence of aortocoronary bypass graft; Z79.82 Long term (current) use of aspirin; Z79.899 Other long term (current) drug therapy; Z72.89 Other problems related to lifestyle

== ENCOUNTER 2020-04-09 10:18 | Emergency (ER) | payer OTHER, MEDICAID ==
[~2020-04-09] VITALS: Ht 167.6 cm; Wt 66.3 kg
--- NOTE | ~2020-04-09 | EMS ---
[place] [address] EMS Patient Care Report Name: DIANE ESTRADA [id number] Admission: 04/09/20 Attend Phys: Discharge: 04/09/20 Date of : 40 Report #: [id number] THIS REPORT FOR: //name// Report Transmitted: 04/11/2020 11:27 EMS Care Summary [place] [facility] Incident [id number] @ 04/09/2020 09:44 Incident Location [address] [place] [address] Patient DIANE ESTRADA Male, 79 Years 1940 Patient Address [address] [place] [address] Patient History Chronic Obstructive Pulmonary Disease (COPD),Hypertension (HTN),Cardiac - Stent,Deep Vein Thrombosis, Patient Allergies No known allergies, Patient Medications Clopidogrel, Atorvastatin, Lisinopril, Nitroglycerin, Chief Complaint Pain from a fall Disposition Transported No Lights/[place] Dispatch Reason Falls Transported To [facility] Narrative Dispatched to address noted [place] [address] EMS Patient Care Report Name: DIANE ESTRADA Room: [facility]#: [id number] Admission: 04/09/20 Attend Phys: Discharge: 04/09/20 Date of : 40 Report #: [id number] [place] [facility] and Engine en route. Arrived and found the patient in a reclining chair. Patient was alert and oriented and his friend was on scene. The friend stated that he had a fall on morning after losing his balance. Patient denied dizziness or a strike to the head. Patient did no pass out and it was a witnessed fall by the friend. Patient stated that after the fall he began to have swelling and pain in his left arm that has gone down some since yesterday. But the pain has gotten worse and he wanted to be transported to [facility] for care. Patient was emotionally upset and crying from the pain. Patients arms were symmetrical and no obvious deformities where noted. CMS was intact. Patient denied any other pain or injuries and was assisted to the stretcher with help from other responders on scene. Once in ambulance, vitals where taken a time noted. Transport was started. While en route, patient was able to manage pain with communication and positioning. Vitals where taken again and no major change was noted to patient or patients pain. Radio report was given at time noted. Arrived and took patient to room. Patient was moved to bed and RN was given verbal report. RN signed for patient and patient signed for self. END REPORT EMT-P Munir Puente Initial Vitals @09:57P: 80,R: 16,BP: 158/77,Pain: 10/10,GCS: 15,SpO2: 95,Revised Trauma: 12, @10:06P: 88,R: 16,BP: 139/61,Pain: 8/10,GCS: 15,SpO2: 95,Revised Trauma: 12, Assessments @09:58MENTAL:Person Oriented,Time Oriented,Place Oriented,Event Oriented,SKIN:HEENT:LUNG SOUNDS:ABDOMEN:PELVIS//GI:EXTREMITIES:Left Arm: Other,Right Arm: No Abnormalities,Left Leg: No Abnormalities,Right Leg: No Abnormalities,PULSE:NEURO:No Abnormalities, Impression Extremity Pain Timeline 09:44,Call Received 09:44,Dispatched 09:46,[place] [address] EMS Patient Care Report Name: DIANE ESTRADA [id number] Admission: 04/09/20 Attend Phys: Discharge: 04/09/20 Date of : 40 Report #: [id number] 09:48,Initial Responder On Scene 09:48,On Scene 09:50,At Patient 09:54,Depart Scene 09:57,BP: 158/77 M,PULSE: 80,RR: 16 R,SPO2: 95 Ox,ETCO2: ,BG: ,PAIN: 10,GCS: 15, 10:06,BP: 139/61 M,PULSE: 88,RR: 16 R,SPO2: 95 Ox,ETCO2: ,BG: ,PAIN: 8,GCS: 15, 10:15,At Destination 10:17,Transfer Patient 10:45,Call Closed 10:45,In District Disclaimer v1.1 Copyright 2020 [employer] This EMS Care Summary contains data elements from the applicable legal record (which may be displayed differently). It is designed to provide pertinent information for the following purposes: continuity of care, clinical quality, and state data reporting. The complete legal record is available to ED staff and administrators of the receiving hospital in [employer]'s Patient Tracker. All data is provided "as is."
[~2020-04-09 10:18] MED LIST changes: +ASA81BEC PO; +AUGMENTIN 875-1 EACH PO; +EFFEXOR XR37.5 MG PO; +FLOMAX0.4 MG PO; +METOPROLOL TART25 MG PO; +PLAVIX 75 MG TA75 MG PO; +PREDNISONE 10 M10 MG PO; +PROTONIX40 M2 PO
[2020-04-09] MEDS ORDERED: REMERON15 M2 PO (10:33)
[2020-04-09] MEDS ORDERED: RANITIDINE PO (10:33)
[2020-04-09] MEDS ORDERED: NITROSTAT0.4 M1 SUBLING (10:34)
[2020-04-09] MEDS ORDERED: FLEXERIL PO (10:35)
[2020-04-09] MEDS ORDERED: SUPER THERAVIT1 EACH PO (10:35)
[2020-04-09] MEDS ORDERED: HYDROCODON-ACE1 EAC7 PO (11:17)
[2020-04-09 12:00] VITALS: BP 126/41
== END 2020-04-09 12:02 | disposition home or self-care (01) ==
LOC: M.ERS 10:18
DX: S50.02XA Contusion of left elbow, initial encounter (principal); I10 Essential (primary) hypertension; I25.10 Atherosclerotic heart disease of native coronary artery without angina pectoris; G62.9 Polyneuropathy, unspecified; Z88.5 Allergy status to narcotic agent; F17.210 Nicotine dependence, cigarettes, uncomplicated; W18.39XA Other fall on same level, initial encounter; Y93.89 Activity, other specified; Y92.89 Other specified places as the place of occurrence of the external cause; Y99.8 Other external cause status

== ENCOUNTER 2020-04-15 11:28 | Emergency (ER) | payer OTHER, MEDICAID ==
[~2020-04-15] VITALS: Ht 160 cm; Wt 79.4 kg
--- NOTE | ~2020-04-15 | EMS ---
[place] [address] EMS Patient Care Report Name: DIANE ESTRADA [id number] Admission: 04/15/20 Attend Phys: Discharge: 04/15/20 Date of : 40 Report #: [id number] THIS REPORT FOR: //name// Report Transmitted: 04/19/2020 10:07 EMS Care Summary [place] [facility] Incident [id number] @ 04/15/2020 10:54 Incident Location [address] [place] [address] Patient DIANE ESTRADA Male, 80 Years 1940 Patient Address [address] [place] [address] Patient History Cardiac - Stent, Patient Allergies No known allergies, Patient Medications Hydrocodone, Venlafaxine, Tamsulosin, Chief Complaint Shoulder pain Disposition Transported No Lights/[place] Dispatch Reason Sick Person Transported To [facility] Narrative Dispatched on shoulder pain. Responded lights [place] [address] EMS Patient Care Report Name: DIANE ESTRADA Room: [facility] Clif#: [id number] Admission: 04/15/20 Attend Phys: Discharge: 04/15/20 Date of : 40 Report #: [id number] Arrived to find a male pt. sitting upright in chair in living room of apartment. HPI: Pt. complains of right shoulder pain. He describes it as an ache that will not go away. He reports he fell a few days ago and struck his shoulder on an end table. He reports he was taken to [facility] and prescribed hydrocodone. He also complains of pain in both wrists. Pt. was assessed in the position found with no obvious issues noted. Pt. was able to stand and walk to ambulance and secured to stretcher. Vitals obtained with tachycardia noted. IV access obtained. Pt. was monitored en route to ER with no changes noted. Pt. was transported to [facility]. Pt. was moved to ER bed #7. Pt. care was transferred to the ELECTROLYSIS OPERATOR who signed the report. End Of Report. Initial Vitals @11:06P: 120,R: 16,BP: 146/80,Pain: 6/10,GCS: 15,SpO2: 99,Revised Trauma: 12, @11:24P: 114,R: 16,BP: 126/58,Pain: 6/10,GCS: 15,Temp: 98.1F,SpO2: 98,Revised Trauma: 12, Assessments @11:07MENTAL:Person Oriented,Time Oriented,Event Oriented,Place Oriented,SKIN:No Abnormalities,HEENT:Head/Face: No Abnormalities,Eyes: No Abnormalities,Neck/Airway: No Abnormalities,LUNG SOUNDS:General: No Abnormalities,Left Upper: No Abnormalities,Right Upper: No Abnormalities,Left Lower: No Abnormalities,Right Lower: No Abnormalities,ABDOMEN:General: No Abnormalities,Left Upper: No Abnormalities,Right Upper: No Abnormalities,Left Lower: No Abnormalities,Right Lower: No Abnormalities,PELVIS//GI:No Abnormalities,EXTREMITIES:Right Arm: NIKKO,Left Arm: NIKKO,Right Arm: NIKKO,PULSE:NEURO:No Abnormalities, Impression Injury of Shoulder or Upper Arm Procedures @11:16Normal Saline (.9% NaCl) - Cold 10cc (20 ga) Site: Hand-LeftResponse: UnchangedSucceeded Timeline 10:54,Call Received 10:54,Dispatched 10:54,En Route 10:56,Initial Responder On Scene 10:56,On Scene 10:57,At Patient 11:03,[place] [address] EMS Patient Care Report Name: DIANE ESTRADA Room: [facility]#: [id number] Admission: 04/15/20 Attend Phys: Discharge: 04/15/20 Date of : 40 Report #: [id number] 11:06,BP: 146/80 M,PULSE: 120,RR: 16 R,SPO2: 99 Ox,ETCO2: ,BG: ,PAIN: 6,GCS: 15, 11:16,Normal Saline (.9% NaCl) - Cold 10cc 20 ga Site: Hand-Left,Response: UnchangedSucceeded, 11:24,BP: 126/58 M,PULSE: 114,RR: 16 R,SPO2: 98 Ox,ETCO2: ,BG: ,PAIN: 6,GCS: 15, 11:24,At Destination 11:27,Transfer Patient 11:53,Call Closed 11:53,In District Disclaimer v1.1 Copyright 2020 [employer] This EMS Care Summary contains data elements from the applicable legal record (which may be displayed differently). It is designed to provide pertinent information for the following purposes: continuity of care, clinical quality, and state data reporting. The complete legal record is available to ED staff and administrators of the receiving hospital in [employer]'s Patient Tracker. All data is provided "as is."
[~2020-04-15 11:28] MED LIST changes: +FLEXERIL PO; +NITROSTAT0.4 M1 SUBLING; +RANITIDINE PO; +REMERON15 M2 PO; +SUPER THERAVIT1 EACH PO
[2020-04-15] MEDS ORDERED: HYDROCODON-ACE1 EAC7 PO (13:23)
[2020-04-15 13:35] VITALS: BP 132/50
--- NOTE | 2020-04-15 15:05 | EKG ---
[place] [address] ELECTROCARDIOGRAM REPORT Name: DIANE ESTRADA Room: [facility]#: [id number] Admission: 04/15/20 Attend Phys: Discharge: 04/15/20 Date of : 40 Date of Service: 04/15/20 1134 Report #: [id number] THIS REPORT FOR: //name// [facility] ED Test Date: 2020-04-15 Test Time: 11:34:53 Pat Name: DIANE ESTRADA Department: Room: Gender: Filling Room Operator: : 1940 Requested By: William Marc Order Number: [id number] Wilfrid MD: Hilario Gotti Measurements Intervals [place] Rate: 98 P: 73 [place]: 156 QRS: 42 QRSD: 82 T: 33 QT: 344 QTc: 440 Interpretive Statements Sinus rhythm Probable left atrial enlargement Compared to ECG 02/16/2020 05:12:39 rate increased Electronically Signed On 04-15-2020 15:05:05 [employer]SEM[employer]UMENTS by Hilario Gotti [email or web address] <ELECTRONICALLY SIGNED> By: Hilario Gotti MD, [facility] 04/15/20 1505 1134 1134 Hliario Gotti MD, [facility] /EPI
== END 2020-04-15 13:35 | disposition home or self-care (01) ==
LOC: M.ERS 11:28
DX: M25.531 Pain in right wrist (principal); M25.532 Pain in left wrist; I10 Essential (primary) hypertension; I25.10 Atherosclerotic heart disease of native coronary artery without angina pectoris; F17.210 Nicotine dependence, cigarettes, uncomplicated; Z88.5 Allergy status to narcotic agent

== ENCOUNTER 2020-06-04 08:58 | Inpatient (IN) | payer OTHER, MEDICAID ==
[~2020-06-04] VITALS: Ht 167.6 cm; Wt 67.4 kg
--- NOTE | ~2020-06-04 | EMS ---
[place] [address] EMS Patient Care Report Name: DIANE ESTRADA Room: [address] IN ..#: [id number] Admission: 06/04/20 Attend Phys: Nicolas Wiley MD Discharge: Date of : 40 Report #: [id number] THIS REPORT FOR: //name// Report Transmitted: 06/08/2020 04:50 EMS Care Summary [place] [employer] [facility] Incident [id number] @ 06/04/2020 08:23 Incident Location [address] [place] [address] Patient DIANE ESTRADA Male, 80 Years 1940 Patient Address [address] [place] [address] Patient History Chronic Obstructive Pulmonary Disease (COPD),Hypertension (HTN),Cardiac Condition - Other, Patient Allergies No known allergies, Patient Medications Lisinopril, Clopidogrel, Symbicort, Atorvastatin, Chief Complaint dizziness Disposition Transported No Lights/[place] Dispatch Reason Sick Person Transported To [facility] Narrative [facility] was dispatched for a 80 year old male feeling dizzy. Med 1 [place] [address] EMS Patient Care Report Name: DIANE ESTRADA Room: [address] ADM IN .R.#: [id number] Admission: 06/04/20 Attend Phys: Nicolas Wiley MD Discharge: Date of : 40 Report #: [id number] responds to the scene urgently. Arrival at the scene EMS personnel dismount the ambulance with the monitor, medical bag and airway bag. Patient is located inside the residence sitting down on the couch. Patient acknowledges EMS presence is GCS 15, AAOx4. Patient has a patent airway is breathing adequately with strong regular radial pulses. Skin is pink warm and dry. Patient denies any chest pain or shortness of breath. Patient advises that he is feeling dizzy this morning. VS and glucose check is conducted and noted that the blood sugar is 210mg/dl. Patient agrees to transport to [facility]. Patient is assisted to the stretcher and placed in the fowlers position and secured with seatbelts and rails. Patient is moved to the ambulance and placed on the monitor and transport is initiated. IV access is established in the left wrist using a 20 gauge IV and secured with a venigard. 10 ML NS is flushed. ECG shows NSR. Assessment conducted is unremarkable. Arrival at the receiving facility patient condition is unchanged and stable. Patient is offloaded and taken to ED room 9. Patient is moved from the stretcher to the bed using the linen. RN is given report and signature is obtained. Transfer of care is completed and Med 1 returns to service. Initial Vitals @08:56P: 88,R: 18,BP: 115/38,SpO2: 99, @08:27P: 98,R: 15,BP: 133/56,Pain: 0/10,GCS: 15,Glucose: -2,SpO2: 98,Revised Trauma: 12,CA Suspected: false @08:36P: 98,R: 16,BP: 131/51,GCS: 15,SpO2: 99,Revised Trauma: 12, Assessments @08:40MENTAL:No Abnormalities,SKIN:No Abnormalities,HEENT:Head/Face: No Abnormalities,Eyes: No Abnormalities,Neck/Airway: No Abnormalities,LUNG SOUNDS:General: No Abnormalities,Left Upper: No Abnormalities,Right Upper: No Abnormalities,Left Lower: No Abnormalities,Right Lower: No Abnormalities,ABDOMEN:General: No Abnormalities,Left Upper: No Abnormalities,Right Upper: No Abnormalities,Left Lower: No Abnormalities,Right Lower: No Abnormalities,PELVIS//GI:No Abnormalities,EXTREMITIES:Left Arm: No Abnormalities,Right Arm: No Abnormalities,Left Leg: No Abnormalities,Right Leg: No Abnormalities,PULSE:NEURO:No Abnormalities, Impression Dizziness Procedures @08:48Normosol-R 10cc (20 ga) Site: Hand-LeftResponse: ImprovedSucceeded@08:49ALS AssessmentResponse: Un[place] [address] EMS Patient Care Report Name: DIANE ESTRADA Room: [address] IN .R.#: [id number] Admission: 06/04/20 Attend Phys: Nicolas Wiley MD Discharge: Date of : 40 Report #: [id number] 08:22,Call Received 08:23,Dispatched 08:23,En Route 08:25,Initial Responder On Scene 08:25,On Scene 08:27,At Patient 08:27,BP: 133/56 M,PULSE: 98,RR: 15 R,SPO2: 98 Ox,ETCO2: ,BG: -2,PAIN: 0,GCS: 15, 08:36,Depart Scene 08:36,BP: 131/51 M,PULSE: 98,RR: 16 R,SPO2: 99 Ox,ETCO2: ,BG: ,PAIN: ,GCS: 15, 08:48,Normosol-R 10cc 20 ga Site: Hand-Left,Response: ImprovedSucceeded, 08:49,ALS Assessment,Response: UnchangedSucceeded, 08:56,BP: 115/38 M,PULSE: 88,RR: 18 R,SPO2: 99 Ox,ETCO2: ,BG: ,PAIN: ,GCS: , 08:57,At Destination 08:59,Transfer Patient 09:07,Call Closed 09:07,In District Disclaimer v1.1 Copyright 2020 [employer] This EMS Care Summary contains data elements from the applicable legal record (which may be displayed differently). It is designed to provide pertinent information for the following purposes: continuity of care, clinical quality, and state data reporting. The complete legal record is available to ED staff and administrators of the receiving hospital in [employer]'s Patient Tracker. All data is provided "as is."
--- NOTE | ~2020-06-04 | PROC ---
[address] [address] PROCEDURE REPORT Name: DIANE ESTRADA Room: [address] ADM IN M.R.#: [id number] Admission: 06/04/20 Attend Phys: Nicolas Wiley MD Discharge: Date of : 40 Report #: [id number] THIS REPORT FOR: cc: FAM - No family physician/PCP FAM - No family physician/PCP [facility],Medical Records Staff ~ For GI report, please see the Provation report in [employer] content. By: 1436Medical Records Staff BURT /KARYN
[2020-06-04 08:59] VITALS: BP 124/49
[2020-06-04 09:42] LABS: ABSOLUTE EOSINOPHILS 0.1 thou/uL (0.0-0.7); ABSOLUTE LYMPHOCYTES 1.2 thou/uL (0.8-5.3); ABSOLUTE MONOCYTES 0.7 thou/uL (0.0-1.2); ABSOLUTE NEUTROPHILS 7.8 thou/uL (1.6-8.1); BASOPHILS 0.5 %; EOSINOPHILS 0.6 %; HEMATOCRIT 27.1 % (42.0-52.0); HEMOGLOBIN 9.1 gm/dL (14.0-18.0); LYMPHOCYTES 12.2 %; MCH 30.1 pg (26.0-34.0); MCHC 33.7 g/dL (28.0-37.0); MCV 89.1 fL (80.0-100.0); MONOCYTES 6.9 %; MPV 7.8 fl. (7.2-11.1); NUCLEATED RBCS 0 /100WBC; PLATELET COUNT* 214 thou/uL (150-400); POLYS 79.8 %; RBC 3.04 mil/uL (4.50-6.00); RDW-CV 15.2 % (10.5-14.5); WBC 9.8 thou/uL (4.0-11.0)
[2020-06-04 09:52] LABS: CALCIUM 8.9 mg/dL (8.5-10.1); CREATININE 1.1 mg/dL (0.6-1.3); POTASSIUM 3.5 mmol/L (3.5-5.1)
[2020-06-04 10:04] LABS: ALBUMIN 2.7 g/dL (3.4-5.0); TOTAL BILIRUBIN 0.5 mg/dL (<0.1-1.0); TOTAL PROTEIN 6.9 g/dL (6.4-8.2)
[2020-06-04 10:19] LABS: APTT 25.4 Seconds (25.0-31.3); INR 1.1; PROTIME 11.5 Seconds (9.20-11.50)
--- NOTE | 2020-06-04 14:02 | NUR ---
UPON REASSESSMENT OF THE PATIENT HE APPEARS TO HAVE A STUTTER THAT HE DID NOT HAVE UPON PRESENTING TO ER. DR. ORTIZ NOTIFIED AND NIH DOCUMENTED.
[2020-06-04] MEDS ORDERED: PREPARATION H1 EAC2 RECTAL (14:06)
[2020-06-04 14:09] VITALS: BP 121/44
[2020-06-04 14:20] VITALS: BP 134/47
--- NOTE | 2020-06-04 18:45 | NUR ---
RECEIVED REPORT FROM ER NURSE RASHAAD. PT ARRIVED TO TELE FLOOR AROUND 1420. PT ORIENTED TO ROOM BED AND CALL LIGHT. ADMISSION ASSESSMENT, HISTORY AND EDUCATION COMPLETED CHARTED. MEDS PER EMAR. PAIN TREATED WITH PO PAIN MEDS. NIH CHARTED. GI AND NEURO CONSULTED. BEDSIDE SWALLOW PASSED. TOLERATED DINNER. FALL PRECAUTIONS IN PLACE. CALL LIGHT WITHIN REACH. HOURLY ROUNDING PERFORMED.
[2020-06-05 04:00] VITALS: BP 119/78
[2020-06-05 05:25] LABS: ABSOLUTE EOSINOPHILS 0.1 thou/uL (0.0-0.7); ABSOLUTE LYMPHOCYTES 1.1 thou/uL (0.8-5.3); ABSOLUTE MONOCYTES 0.4 thou/uL (0.0-1.2); ABSOLUTE NEUTROPHILS 5.8 thou/uL (1.6-8.1); BASOPHILS 0.6 %; EOSINOPHILS 1.3 %; HEMATOCRIT 23.1 % (42.0-52.0); HEMOGLOBIN 7.7 gm/dL (14.0-18.0); LYMPHOCYTES 14.5 %; MCH 29.9 pg (26.0-34.0); MCHC 33.5 g/dL (28.0-37.0); MCV 89.3 fL (80.0-100.0); MONOCYTES 5.3 %; MPV 8.4 fl. (7.2-11.1); NUCLEATED RBCS 0 /100WBC; PLATELET COUNT* 177 thou/uL (150-400); POLYS 78.3 %; RBC 2.59 mil/uL (4.50-6.00); RDW-CV 15.3 % (10.5-14.5); WBC 7.4 thou/uL (4.0-11.0)
[2020-06-05 06:01] LABS: CALCIUM 8.3 mg/dL (8.5-10.1); CREATININE 1.2 mg/dL (0.6-1.3); POTASSIUM 4.3 mmol/L (3.5-5.1); TOTAL BILIRUBIN 0.2 mg/dL (<0.1-1.0); TOTAL PROTEIN 5.7 g/dL (6.4-8.2)
[2020-06-05 06:10] LABS: CHOLESTEROL 70 mg/dL (<200); HDL CHOLESTEROL 31 mg/dL (>40); LDL CHOLESTEROL 29 mg/dL (<100); TC:HDL 2.3 Ratio (Not establshd); TRIGLYCERIDE 52 mg/dL (<150); VLDL 10 mg/dL (<40)
[2020-06-05 06:11] LABS: SERUM ASSESSMENT Clear
[2020-06-05 07:07] LABS: GLYCOHEMOGLOBIN (HGB A1C) 6.2 % (4.8-5.6)
[2020-06-05 08:00] VITALS: BP 102/35
[2020-06-05 08:12] LABS: ESR (SEDRATE) 110 mm/hr (0-20)
[2020-06-05 12:00] VITALS: BP 140/65
[2020-06-05 17:36] LABS: URINE BILIRUBIN NEGATIVE (Negative); URINE BLOOD NEGATIVE (Negative); URINE CLARITY CLEAR; URINE COLOR YELLOW; URINE GLUCOSE-RANDOM NEGATIVE (Negative); URINE KETONES NEGATIVE (Negative); URINE LEUKOCYTES NEGATIVE (Negative); URINE NITRITE NEGATIVE (Negative); URINE PROTEIN NEGATIVE (Negative); URINE UROBILINOGEN 0.2 E.U./dl (0.2-1.0)
[2020-06-05 18:15] VITALS: BP 115/43
--- NOTE | 2020-06-05 18:50 | NUR ---
RECEIVED REPORT. ASSUMED CARE OF PT AROUND 0730. AM ASSESSMENT AND VITALS COMPLETED CHARTED. MEDS PER EMAR. NIH CHARTED. PT UP WITH ASSIST X2 TO TOILET TO VOID. NO BMS TODAY. DOES RETAIN URINE BUT IS ABLE TO VOID WITH A SECOND ATTEMPTS. UA SENT. WORKED WITH PHYSICAL THERAPY THIS SHIFT. APPETITE GOOD. NEEDS SET UP FOR MEALS. MRI, EGD, ECHO, US CAROTIDS ALL PLANNED FOR TOMORROW. FALL PRECAUTIONS IN PLACE. CALL LIGHT WITHIN REACH. HOURLY ROUNDING PERFORMED.
[2020-06-05 20:00] VITALS: BP 119/51
[2020-06-06 00:55] VITALS: BP 92/53
--- NOTE | 2020-06-06 01:54 | NUR ---
ASSUMED CARE OF PT AT 1900. PT IS DELUSIONAL AND POSSIBLY HALLUCINATING. PT IS TALKING TO PEOPLE THAT OUR NOT IN THE ROOM. NIH IS 4. PT IS IN SINUS RYTHM ON THE TELEMETRY. PT IS RESTING COMFORTABLY IN BED. RESPIRATIONS ARE EVEN AND NONLABORED. WILL CONTINUE TO MONITOR PT.
[2020-06-06 04:45] VITALS: BP 117/38
[2020-06-06 04:52] LABS: HEMOGLOBIN 7.4 gm/dL (14.0-18.0); MCHC 33.7 g/dL (28.0-37.0); MPV 8.7 fl. (7.2-11.1); NUCLEATED RBCS 0 /100WBC; PLATELET COUNT* 166 thou/uL (150-400); RBC 2.47 mil/uL (4.50-6.00); RDW-CV 15.1 % (10.5-14.5); WBC 10.1 thou/uL (4.0-11.0)
[2020-06-06 05:13] LABS: CALCIUM 8.2 mg/dL (8.5-10.1); CREATININE 1.2 mg/dL (0.6-1.3); POTASSIUM 4.6 mmol/L (3.5-5.1); TOTAL BILIRUBIN 0.2 mg/dL (<0.1-1.0); TOTAL PROTEIN 5.8 g/dL (6.4-8.2)
[2020-06-06 05:45] LABS: ABSOLUTE LYMPHOCYTES 0.7 thou/uL (0.8-5.3); ABSOLUTE NEUTROPHILS 9.4 thou/uL (1.6-8.1); PLATELET ESTIMATE ADEQUATE
[2020-06-06 05:46] LABS: ANISOCYTOSIS 1+; POIKILOCYTOSIS 1+
[2020-06-06 08:00] VITALS: BP 122/39
--- NOTE | 2020-06-06 10:52 | EKG ---
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
--- NOTE | 2020-06-06 14:16 | NUR ---
Pt is A&O. Resides at home alone. Independent. Pt has a home neb. No hx of HH or SNF. Pt's goal is to return home at dc. CVA workup pending. Therapies to see. Anticipate dc tomorrow to home, CM to follow for HH needs.
[2020-06-06 14:58] VITALS: BP 125/51
--- NOTE | 2020-06-06 15:15 | 2DMMODE ---
[place] [address] 2 D/M-MODE ECHOCARDIOGRAM Name: DIANE ESTRADA Room: [address] IN .R.#: [id number] Admission: 06/04/20 Attend Phys: Nicolas Wiley, Discharge: Date of : 40 Date of Service: 06/06/20 1515 Report #: [id number] THIS REPORT FOR: cc: FAM - No family physician/PCP FAM - No family physician/PCP Hilario Gotti MD [facility] ~ APPROVED REPORT Study performed: 06/06/2020 11:43:29 EXAM: Comprehensive 2D, Doppler, and color-flow Echocardiogram Patient Location: In-Patient Room #: [facility] Status: routine BSA: 1.66 HR: 52 bpm BP: 122/39 mmHg Rhythm: NSR Other Information Study Quality: Good Indications CVA/TIA Echo Enhancing Agent Indication: Rule out Shunt Agent(s) / Amount(s) Used: Agitated Saline 10 cc 2D Dimensions IVSd: 8.13 (7-11mm) LVOT Diam: 19.21 (18-24mm) LVDd: 40.06 mm PWd: 8.86 (7-11mm) Ascending Ao: 31.79 (22-36mm) LVDs: 22.50 (25-40mm) Aortic Root: 32.82 mm Volumes Left Atrial Volume (Systole) LA ESV Index: 29.40 mL/m2 Aortic Valve AoV Peak Dagoberto.: 1.28 m/s AO Peak Gr.: 6.60 mmHg LVOT Max P.45 mmHg AO Mean Gr.: 3.77 mmHg LVOT Mean P[place]56 [place] [address] 2 D/M-MODE ECHOCARDIOGRAM Name: DIANE ESTRADA Room: [address] IN M.R.#: [id number] Admission: 06/04/20 Attend Phys: Nicolas Wiley, Discharge: Date of : 40 Date of Service: 06/06/20 1515 Report #: [id number] LVOT Max V: 0.93 m/s AO V2 VTI: 32.56 cm LVOT Mean V: 0.57 m/s MANPREET (VTI): 2.60 cm2 LVOT V1 VTI: 29.23 cm AI Gilpin: 1.89 m/s2 AI PHT: 576.15 ms Mitral Valve E/A Ratio: 1.15 MV Decel. Time: 188.55 ms MV E Max Dagoberto.: 1.22 m/s MV PHT: 54.68 ms MVA (PHT): 4.02 cm2 TDI E/Lateral E': 11.09 E/Medial E': 12.20 Medial E' Dagoberto.: 0.10 m/s Lateral E' Dagoberto.: 0.11 m/s Pulmonary Valve PV Peak Dagoberto.: 0.68 m/s PV Peak Gr.: 1.87 mmHg Tricuspid Valve RAP Estimate: 5.00 mmHg TR Peak Gr.: 30.92 mmHg RVSP: 35.00 mmHg PA Pressure: 35.00 mmHg Left Ventricle The left ventricle is normal size. There is normal LV segmental wall motion. There is normal left ventricular wall thickness. Left ventricular systolic function is normal. The left ventricular ejection fraction is within the normal range. LVEF is 55-60%. The left ventricular diastolic function is normal. Right Ventricle The right ventricle is normal size. The right ventricular systolic function is normal. Atria Left atrium is mildly dilated. The interatrial septum is intact with no evidence for an atrial septal defect. The right atrium size is normal. Aortic Valve Mild aortic valve sclerosis. Mild aortic regurgitation. There is no [place] [address] 2 D/M-MODE ECHOCARDIOGRAM Name: DIANE ESTRADA Room: [address] IN ..#: [id number] Admission: 06/04/20 Attend Phys: Nicolas Wiley, Discharge: Date of : 40 Date of Service: 06/06/20 1515 Report #: [id number] Mitral Valve There is mitral annular calcification. Mild mitral regurgitation. No evidence of mitral valve stenosis. Tricuspid Valve The tricuspid valve is normal in structure. Moderate tricuspid regurgitation. estimated pa pressure 45 mm Hg Pulmonic Valve The pulmonary valve is normal in structure. Trace pulmonic regurgitation. Great Vessels The aortic root is normal in size. IVC is normal in size and collapses >50% with inspiration. Pericardium There is no pericardial effusion. <Conclusion> LVEF is 55-60%. The interatrial septum is intact with no evidence for an atrial septal defect. Left atrium is mildly dilated. Mild aortic regurgitation. Mild mitral regurgitation. Moderate tricuspid regurgitation. estimated pa pressure 45 mm Hg <ELECTRONICALLY SIGNED> By: Hilario Gotti MD, FACC 06/06/20 1515 14 14 Hilario Gotti MD, FACC /INF
--- NOTE | 2020-06-06 18:55 | NUR ---
patient resting in room, call light and all personal belongings within reach, had MRI and EGD today, SLIV, RA, bed alarm on, patient currently A&Ox 4. will give report to pediatric physical therapy assistant nurse.
[2020-06-06 21:43] VITALS: BP 111/40
[2020-06-06 23:49] VITALS: BP 122/42
--- NOTE | 2020-06-07 04:37 | NUR ---
PT SEEMS ALERT TO SELF, SITUATION, PLACE. HE COMMUNICATES WELL. HE TOOK PILLS WELL, ATE, DRANK WELL. IS ABLE TO RATE ANY PAIN. HE REPORTED SOME SUDDEN PAIN IN HIS LEFT HEEL. HYDROCODONE GIVEN. HE STATED THAT IT HELPED. HE WAS ABLE TO SLEEP MOST ALL SHIFT. ROOM AIR. CAN ALERT STAFF FOR NEEDS.
[2020-06-07 04:40] VITALS: BP 113/39
[2020-06-07 08:46] VITALS: BP 132/50
[2020-06-07 10:50] LABS: ABSOLUTE BASOPHILS 0.1 thou/uL (0.0-0.2); ABSOLUTE LYMPHOCYTES 1.5 thou/uL (0.8-5.3); ABSOLUTE MONOCYTES 0.4 thou/uL (0.0-1.2); ABSOLUTE NEUTROPHILS 5.7 thou/uL (1.6-8.1); BASOPHILS 0.7 %; EOSINOPHILS 0.6 %; HEMATOCRIT 22.4 % (42.0-52.0); HEMOGLOBIN 7.5 gm/dL (14.0-18.0); LYMPHOCYTES 19.4 %; MCH 29.7 pg (26.0-34.0); MCHC 33.3 g/dL (28.0-37.0); MCV 89.1 fL (80.0-100.0); MONOCYTES 4.6 %; NUCLEATED RBCS 0 /100WBC; PLATELET COUNT* 187 thou/uL (150-400); POLYS 74.7 %; RBC 2.52 mil/uL (4.50-6.00); RDW-CV 15.3 % (10.5-14.5); WBC 7.7 thou/uL (4.0-11.0)
[2020-06-07 10:54] LABS: CALCIUM 8.3 mg/dL (8.5-10.1); CREATININE 1.3 mg/dL (0.6-1.3); POTASSIUM 4.4 mmol/L (3.5-5.1)
[2020-06-07 10:59] LABS: ALBUMIN 2.1 g/dL (3.4-5.0); TOTAL BILIRUBIN 0.1 mg/dL (<0.1-1.0); TOTAL PROTEIN 5.1 g/dL (6.4-8.2)
[2020-06-07 11:38] VITALS: BP 107/31
[2020-06-07] MEDS ORDERED: PROTONIX40 M2 PO (12:09)
[2020-06-07] MEDS ORDERED: CARAFATE 11 GM/10 M1 PO (12:09)
[2020-06-07 13:17] VITALS: BP 107/31
--- NOTE | 2020-06-07 13:20 | NUR ---
Pt refusing skilled wants to dc home with HH. Friend/caregiver in room, aware. CM faxed HH orders to [facility]. DC later today
[2020-06-07 16:00] VITALS: BP 110/45
[2020-06-07 19:07] LABS: ANA INTERPRETATION Negative (())
--- NOTE | 2020-06-07 20:15 | NUR ---
ASSUMED PT CARE AT 0730. PT IS A & O X4 WITH MINIMAL CONFUSION AT TIMES. ASSESSMENT COMPLETED, NO SEIZURES NOTED TODAY. PT UP WITH ASSIST X2 WITH A GAIT BELT AND WALKER WITH MODERATE ASSIST. PT'S HOME CAREGIVER ENCOURAGING PT TO GO HOME WITH HOME HEALTH AND NOT GO TO REHAB. PT STATED HE AGREED. PHYSICAL THERAPIST AND THIS FEEDER CATCHER TOBACCO ASSISTED PT UP WITH WALKER AND PT MORE AWARE OF WEAKNESS AND CHANGE IN HIS AMBULATION. PT AND PT'S SON AGREED THAT PT TO STAY FOR INPATIENT REHAB. CALL OUT OPERATOR AND PHYSICIAN AWARE.
[2020-06-07 20:20] VITALS: BP 120/50
[2020-06-08] VITALS (7 sets, daily range): BP systolic 107–139; BP diastolic 31–70
--- NOTE | 2020-06-08 07:10 | NUR ---
PT IS A/OX4. PT IS SR TO SB DURING THE NOC. PT ADMITTED FOR STROKE. PT HAS LEFT SIDED WEAKNESS, LEFT SIDED FACIAL DROOP. PTS NIH ASSESSMENT WAS 7. PT USES URINAL AND BEDPAN AT THIS TIME. PT WORKING WITH PT. AT THE BEGINNING OF THE SHIFT PT'S RIGHT ARM HAD A COBAN WRAPPED TIGHTLY AROUND WRIST AND ELBOW. PT'S RFA IV WAS STOPPED. SOME EDEMA NOTED. ARM ELEVATED.
--- NOTE | 2020-06-08 10:34 | NUR ---
ASSUMED CARE OF PT AT 0730. PT CURRENTLY SITTING IN CHAIR. A&0X4, DENIES ANY PAIN OR SHORTNESS OF BREATH AT THIS TIME. TRACING SR ON THE WASHTUB WORKER HELPER. ON RA SAT UPPER 90'S. NIH CHARTED. PT UP WITH MAX ASSIST-WEAKNESS NOTED. IVF. NEW IV PLACED TO LEFT FOREARM BY LIANE CAMPBELL RN THIS AM. PT GOAL FOR TODAY IS WORK WITH PT AND OT, UP TO CHAIR FOR MEALS AND DISCHARGE PLANNING TO REHAB. AM ASSESSMENT CHARTED. MEDICATIONS PER APR. PT REPOSITIONED EVERY 2 HOURS FOR COMFORT. HOURLY ROUNDING OBSERVED. BED IN LOW POSITION. BED ALARM IN PLACE FALL PRECAUTIONS IN PLACE. CALL LIGHT WITHIN REACH. WILL CONTINUE PLAN OF CARE.
--- NOTE | 2020-06-08 12:36 | EEG ---
[address] [address] EEG STUDY REPORT Name: DIANE ESTRADA Room: [address] ADM IN M.R.#: [id number] Admission: 06/04/20 Attend Phys: Nicolas Wiley MD Discharge: Date of : 40 Report #: [id number] THIS REPORT FOR: cc: FAM - No family physician/PCP FAM - No family physician/PCP Jose Armando Guzmán MD ~ DOC #: [id number] Jose Armando Guzmán MD DATE OF SERVICE: 06/07/2020 This patient is being evaluated for altered mental status. He was also having some jerking movements from the stroke and EEG was done to evaluate the patient for any periodic lateralizing epileptiform discharges arising from that stroke. The patient's background activity is slow on both sides. It is poorly formed. It appeared to be about 8 Hz and 30 microvolt. Photic stimulation is unremarkable. The patient went to sleep and that is associated with bilateral slowing and vertex sharp waves. Throughout the record, no active epileptiform activity was noticed. IMPRESSION: This patient's EEG is slow and poorly formed. That is a nonspecific abnormality which can occur with encephalopathy, effect of psychotropic medication, dementia, etc. No active epileptiform activity was noticed during this record. Thank you very much for this referral. Jose Armando Guzmán MD PK/MAX <ELECTRONICALLY SIGNED> By: Jose Armando Guzmán MD 06/08/20 1236 1620 1751Pjoshua Guzmán MD /nt
--- NOTE | 2020-06-08 14:30 | NUR ---
Cardiac Rehab Stroke Education. Patient sleepy but pleasant and receptive to stroke education including signs and symptoms of stroke, call 911 at onset of symptoms, personal risk factor reduction, smoking cessation and healthy diet. States he plans to stop smoking using the "[place]" method as he has in the past. States he does not eat many fruits or vegetables but willing to eat more. Exercise discussed and will defer to PT/OT.
--- NOTE | 2020-06-08 14:47 | NUR ---
Pt medically stable to dc. ARU INCUBATOR OPERATOR to see Pt today, insurance auth initiated.
--- NOTE | 2020-06-08 16:06 | PATH ---
[address] [address] PATHOLOGY RPT PROCEDURE Name: DIANE ESTRADA Room: [address] ADM IN M.R.#: [id number] Admission: 06/04/20 Date of : 40 Discharge: Report #: [id number] Path Case #: [id number] L[facility] Accession Number: [id number] . 01 Material submitted: . PART A: duodenum - DUODENAL BIOPSY PART B: stomach - ANTRAL BIOPSY. Modifiers: ANTRUM PART C: cardia - ULCER IN CARDIA . 01 Clinical history: . EGD IN OR EGD BIOPSIES . 02 Diagnosis: A. Duodenal biopsy: - Minimal nonspecific active duodenitis, negative for granulomas, viral inclusions and dysplasia/adenomatous change. . B. Antral biopsy: - Mild nonspecific chronic antral gastritis with intestinal metaplasia, negative for Helicobacter pylori organisms, granulomas and dysplasia. . C. Ulcer in cardia: - Minimal nonspecific active gastritis, negative for granulomas, Helicobacter pylori organisms and dysplasia. . (CHARLEE:[place]; 06/08/2020) . Special stains on B and C: H. pylori immuno MBR 06/08/2020 1240 Local . 02 Electronically signed: . Man Kennedy MD, Pathologist NPI- [id number] . 01 Gross description: . A. Received in formalin labeled "Estrada, Diane and duodenal biopsy". Received are 3 shen-brown soft tissue fragments ranging from 0.2-0.3 cm. Specimen is entirely submitted in cassette A1. . B. Received in formalin labeled "Estrada, Diane and antral biopsy". Received are 3 purcell-shen soft tissue fragments ranging from 0.2-0.4 cm. Specimen is entirely submitted in cassette B1. . C. Received in formalin labeled "Estrada, Diane and ulcer in the cardia". Received is a purcell-shen soft tissue fragment measuring 0.5 x 0.2 x 0.2 cm. Specimen is entirely submitted in cassette C1.([facility]; 06/07/2020) . [place] [address] PATHOLOGY RPT PROCEDURE Name: DIANE ESTRADA Room: [address] IN M.R.#: [id number] Admission: 06/04/20 Date of : 40 Discharge: Report #: [id number] Path Case #: [id number] J/BLJ 06/08/2020 1238 Local . 02 Pathologist provided ICD-10: K29.80, K29.50 . 02 CPT . 221190, 338624, 034678, Q91038 Specimen Comment: A courtesy copy of this report has been sent to [phone] Specimen Comment: [phone] Specimen Comment: Report sent to / DR HELM Performed at: [address], [place], [place] [id number] MD Heriberto Burns MD Phone: [phone] Performed at: 02 [facility] [address], [place], [place] [id number] MD Man Kennedy MD Phone: [phone]
--- NOTE | 2020-06-08 16:51 | NUR ---
NO ACUTE CHANGES THROUGHOUT SHIFT. REFER TO CHARTING. PT WORKED WITH PT AND OT TODAY-TOLERATED WELL. IVF. PROGRESSING TOWARDS GOALS-PROBABLE DISCHARGE TO REHAB TOMORROW 06/09 PENDING INSURANCE AUTH. SON CALLED IN AM AND AFTERNOON AND UPDATED ON CURRENT PLAN OF CARE. MEDS PER APR. CALL LIGHT WITHIN REACH. WILL CONTINUE PLAN OF CARE.
[2020-06-09 00:16] VITALS: BP 104/47
[2020-06-09 04:18] VITALS: BP 128/56
[2020-06-09 09:00] VITALS: BP 127/42
--- NOTE | 2020-06-09 11:08 | CON ---
[address] [address] CONSULTATION Name: DIANE ESTRADA Room: [address] ADM IN M.R.#: [id number] Admission: 06/04/20 Attend Phys: Nicolas Wiley MD Discharge: Date of : 40 Report #: [id number] THIS REPORT FOR: cc: MAEGAN - No family physician/PCP MAEGAN - No family physician/PCP Ahsanti Wall MD ~ DOC #: [id number] Ashanti Wall MD DATE OF CONSULTATION: 06/05/2020 REQUESTING PHYSICIAN: Dr. Nicolas Wiley. REASON FOR CONSULTATION: Melena in stool. HISTORY OF PRESENT ILLNESS: This is an 80-year-old male with history of peptic ulcer disease, who has had coronary artery disease, which has required stenting back in February of this year. Patient is on Plavix and aspirin. The patient had come to the hospital from neck and shoulder pain. He reports that these symptoms are chronic. He also has complained of weakness and unsteady gait. He denies any abdominal pain, diarrhea, constipation, or hematochezia. He believes that he had a colonoscopy 2 years ago, which was unremarkable. He reports that he has had a history of gastric ulcers in the past. PAST MEDICAL HISTORY: Significant for history of coronary artery disease status post stenting, carotid stenosis, CVA, hypertension, TIA, depression, and dyslipidemia. ALLERGIES: SIGNIFICANT TO MORPHINE. MEDICATIONS: Please refer to MAR. SOCIAL HISTORY: The patient has long history of tobaccoism and continues to smoke. He may occasionally have alcoholic beverage. FAMILY HISTORY: Noncontributory. PHYSICAL EXAMINATION: VITAL SIGNS: Reveals blood pressure of 119/78, respirations 17, pulse 56, temperature 97.7. LUNGS: Clear. HEART: Regular. ABDOMEN: Soft, mildly tender to palpation in lower quadrant. [place] [address] CONSULTATION Name: DIANE ESTRADA Room: [address] IN [facility]#: [id number] Admission: 06/04/20 Attend Phys: Nicolas Wiley MD Discharge: Date of : 40 Report #: [id number] NEUROLOGIC: The patient is alert, oriented x 3. LABORATORY DATA: Reveal sodium of 139, potassium 4.3, BUN is 23, creatinine 1.2, AST is 14, ALT is 6, alkaline phosphatase 70, total bilirubin 0.2. INR is 1.1. WBC 7.4 with a hemoglobin of 7.7 down from 9.1 yesterday, platelet count is 177. His sed rate is 110. ASSESSMENT AND PLAN: The patient with history of coronary artery disease status post stenting in February, who is on antiplatelet therapy and reports history of peptic ulcer disease. The patient also reports melena in stool and his hemoglobin has dropped from his baseline of 10 to 7.7. We will monitor H and H and if hemoglobin drops below 7, transfuse. We will consider upper endoscopy as he reports that he had a colonoscopy 2 years ago, which was unremarkable. We will obtain this record. Ashanti Wall MD FMN/KELLI <ELECTRONICALLY SIGNED> By: Ashanti Wall MD 06/09/20 1108 0836 1146Ashanti Wall MD /nt
[2020-06-09 12:00] VITALS: BP 103/39
--- NOTE | 2020-06-09 13:25 | NUR ---
Pt medically stable to dc to ARU pending insurance auth.
[2020-06-09 17:43] VITALS: BP 115/40
[2020-06-10] VITALS: BP 132/42
[2020-06-10 04:00] VITALS: BP 121/41
[2020-06-10 08:03] VITALS: BP 131/47
[2020-06-10 11:49] VITALS: BP 113/42
[2020-06-10 12:25] LABS: ABSOLUTE EOSINOPHILS 0.2 thou/uL (0.0-0.7); ABSOLUTE MONOCYTES 0.4 thou/uL (0.0-1.2); ABSOLUTE NEUTROPHILS 7.1 thou/uL (1.6-8.1); BASOPHILS 0.5 %; EOSINOPHILS 1.9 %; HEMATOCRIT 24.9 % (42.0-52.0); HEMOGLOBIN 8.2 gm/dL (14.0-18.0); MCHC 33.1 g/dL (28.0-37.0); MCV 90.6 fL (80.0-100.0); MONOCYTES 5.1 %; NUCLEATED RBCS 0 /100WBC; PLATELET COUNT* 219 thou/uL (150-400); POLYS 81.5 %; RBC 2.75 mil/uL (4.50-6.00); RDW-CV 15.3 % (10.5-14.5); WBC 8.8 thou/uL (4.0-11.0)
[2020-06-10 12:40] LABS: CALCIUM 8.1 mg/dL (8.5-10.1); TOTAL BILIRUBIN 0.2 mg/dL (<0.1-1.0); TOTAL PROTEIN 5.7 g/dL (6.4-8.2)
--- NOTE | 2020-06-10 13:46 | NUR ---
RETURNED CALL TO PT'S SON MAGGI AT [phone]. INFORMED OF RECENT MD NOTE AND STILL WAITING ON ADMISSION/INSURANCE AUTH FOR SKILLED REHAB.
--- NOTE | 2020-06-10 14:37 | NUR ---
PHONE CALL TO PT'S SON. INFORMED THAT PT HAS BEEN ADMITTED TO REHAB. WILL MOVE THIS AFTERNOON.
== END 2020-06-10 15:57 | DRG 64 ==
LOC: M.ERS 08:58 → M.TBA-ER 11:49 → M.2W 11:49
PROVIDERS: Emergency Medicine Emergency Medical Services; Internal Medicine Gastroenterology; Psychiatry & Neurology Neurology; ADMIT Internal Medicine; ATTEND Internal Medicine
PROC: 0DB68ZX Excision of Stomach, Via Natural or Artificial Opening Endoscopic, Diagnostic (ICD-10-PCS; principal; 2020-06-06)
PROC: 0DB98ZX Excision of Duodenum, Via Natural or Artificial Opening Endoscopic, Diagnostic (ICD-10-PCS; principal; 2020-06-06)
PROC: 0D758ZZ Dilation of Esophagus, Via Natural or Artificial Opening Endoscopic (ICD-10-PCS; principal; 2020-06-06)
DX: I63.9 Cerebral infarction, unspecified (principal); E43 Unspecified severe protein-calorie malnutrition; K25.4 Chronic or unspecified gastric ulcer with hemorrhage; D62 Acute posthemorrhagic anemia; Z20.822 Contact with and (suspected) exposure to COVID-19; I25.10 Atherosclerotic heart disease of native coronary artery without angina pectoris; I10 Essential (primary) hypertension; G62.9 Polyneuropathy, unspecified; F17.210 Nicotine dependence, cigarettes, uncomplicated; F32.9 Major depressive disorder, single episode, unspecified; E78.5 Hyperlipidemia, unspecified; I73.9 Peripheral vascular disease, unspecified; K44.9 Diaphragmatic hernia without obstruction or gangrene; K22.2 Esophageal obstruction; R47.81 Slurred speech; I65.21 Occlusion and stenosis of right carotid artery; K31.9 Disease of stomach and duodenum, unspecified; Z95.1 Presence of aortocoronary bypass graft; Z87.11 Personal history of peptic ulcer disease; Z79.899 Other long term (current) drug therapy; Z88.5 Allergy status to narcotic agent; Z79.82 Long term (current) use of aspirin; Z79.02 Long term (current) use of antithrombotics/antiplatelets; Z95.5 Presence of coronary angioplasty implant and graft; Z71.6 Tobacco abuse counseling; Z68.24 Body mass index [BMI] 24.0-24.9, adult

== ENCOUNTER 2020-06-10 14:28 | Inpatient (IN) | payer OTHER, MEDICAID ==
[~2020-06-10] VITALS: Ht 175.3 cm; Wt 58.3 kg
[~2020-06-10 14:28] MED LIST changes: +CARAFATE 11 GM/10 M1 PO; +PREPARATION H1 EAC2 RECTAL
[2020-06-10 20:14] VITALS: BP 144/54
[2020-06-11 05:10] LABS: HEMATOCRIT 23.4 % (42.0-52.0); HEMOGLOBIN 7.8 gm/dL (14.0-18.0); MCH 29.7 pg (26.0-34.0); MCHC 33.3 g/dL (28.0-37.0); MCV 89.3 fL (80.0-100.0); MPV 8.6 fl. (7.2-11.1); RBC 2.62 mil/uL (4.50-6.00); RDW-CV 15.6 % (10.5-14.5); WBC 7.1 thou/uL (4.0-11.0)
[2020-06-11 05:37] LABS: CALCIUM 8.3 mg/dL (8.5-10.1); CREATININE 1.1 mg/dL (0.6-1.3); POTASSIUM 3.8 mmol/L (3.5-5.1)
[2020-06-11 07:50] VITALS: BP 131/65
[2020-06-11 19:50] VITALS: BP 123/39
[2020-06-12 07:40] VITALS: BP 121/49
[2020-06-12 19:49] VITALS: BP 106/38
[2020-06-13 08:00] VITALS: BP 141/54
[2020-06-13 19:00] VITALS: BP 99/36
[2020-06-14 07:30] VITALS: BP 148/42
[2020-06-14 19:00] VITALS: BP 122/68
[2020-06-15 04:59] LABS: HEMATOCRIT 24.6 % (42.0-52.0); HEMOGLOBIN 8.1 gm/dL (14.0-18.0); MCH 29.3 pg (26.0-34.0); MCHC 33.1 g/dL (28.0-37.0); MCV 88.6 fL (80.0-100.0); RBC 2.78 mil/uL (4.50-6.00); RDW-CV 14.9 % (10.5-14.5); WBC 7.5 thou/uL (4.0-11.0)
[2020-06-15 05:14] LABS: CALCIUM 8.2 mg/dL (8.5-10.1); CREATININE 1.2 mg/dL (0.6-1.3)
[2020-06-15 08:00] VITALS: BP 132/45
[2020-06-15 20:21] VITALS: BP 121/38
[2020-06-16 20:08] VITALS: BP 122/45
[2020-06-17 07:30] VITALS: BP 131/48
[2020-06-17 20:13] VITALS: BP 138/30
[2020-06-18 08:30] VITALS: BP 129/36
[2020-06-18 19:00] VITALS: BP 117/41
[2020-06-19 08:00] VITALS: BP 135/63
[2020-06-19 20:22] VITALS: BP 125/42
[2020-06-20 07:45] VITALS: BP 147/50
[2020-06-20 12:43] LABS: HEMATOCRIT 28.2 % (42.0-52.0); HEMOGLOBIN 9.4 gm/dL (14.0-18.0); MCHC 33.4 g/dL (28.0-37.0); MCV 89.6 fL (80.0-100.0); MPV 7.7 fl. (7.2-11.1); RBC 3.14 mil/uL (4.50-6.00); WBC 12.3 thou/uL (4.0-11.0)
[2020-06-20 12:56] LABS: ALBUMIN 2.8 g/dL (3.4-5.0); CALCIUM 8.6 mg/dL (8.5-10.1); CREATININE 1.2 mg/dL (0.6-1.3); POTASSIUM 4.3 mmol/L (3.5-5.1); TOTAL BILIRUBIN 0.6 mg/dL (<0.1-1.0); TOTAL PROTEIN 7.3 g/dL (6.4-8.2)
[2020-06-20 17:34] LABS: URINE BILIRUBIN NEGATIVE (Negative); URINE BLOOD NEGATIVE (Negative); URINE CLARITY CLEAR; URINE COLOR YELLOW; URINE GLUCOSE-RANDOM NEGATIVE (Negative); URINE KETONES NEGATIVE (Negative); URINE LEUKOCYTES-REFLEX NEGATIVE (Negative); URINE NITRITE-REFLEX NEGATIVE (Negative); URINE PROTEIN NEGATIVE (Negative); URINE UROBILINOGEN 0.2 E.U./dl (0.2-1.0)
[2020-06-20 19:00] VITALS: BP 135/42
[2020-06-21 08:01] VITALS: BP 160/41
[2020-06-21 20:06] VITALS: BP 117/35
[2020-06-22 05:13] LABS: HEMATOCRIT 26.2 % (42.0-52.0); HEMOGLOBIN 8.9 gm/dL (14.0-18.0); MCH 30.1 pg (26.0-34.0); MCHC 34.1 g/dL (28.0-37.0); MCV 88.2 fL (80.0-100.0); RBC 2.97 mil/uL (4.50-6.00); RDW-CV 15.2 % (10.5-14.5); WBC 8.3 thou/uL (4.0-11.0)
[2020-06-22 05:22] LABS: CALCIUM 8.4 mg/dL (8.5-10.1); CREATININE 1.1 mg/dL (0.6-1.3); POTASSIUM 3.8 mmol/L (3.5-5.1)
[2020-06-22 08:07] VITALS: BP 143/47
[2020-06-22 19:00] VITALS: BP 133/47
[2020-06-23 08:09] VITALS: BP 139/40
[2020-06-23 20:21] VITALS: BP 130/48
[2020-06-24 08:25] VITALS: BP 140/47
[2020-06-24 20:00] VITALS: BP 108/30
[2020-06-25 08:04] VITALS: BP 112/55
[2020-06-25 20:00] VITALS: BP 128/53
[2020-06-26 08:15] VITALS: BP 156/54
[2020-06-26 20:16] VITALS: BP 123/56
[2020-06-27 08:30] VITALS: BP 141/48
[2020-06-27 10:30] VITALS: BP 118/59
[2020-06-27 11:00] VITALS: BP 99/54
[2020-06-27 20:00] VITALS: BP 120/41
[2020-06-28 09:30] VITALS: BP 115/40
[2020-06-28 19:00] VITALS: BP 92/42
[2020-06-28 21:48] VITALS: BP 85/41
[2020-06-28 22:59] LABS: ABSOLUTE BASOPHILS 0.1 thou/uL (0.0-0.2); ABSOLUTE EOSINOPHILS 0.2 thou/uL (0.0-0.7); ABSOLUTE LYMPHOCYTES 1.1 thou/uL (0.8-5.3); ABSOLUTE MONOCYTES 0.4 thou/uL (0.0-1.2); ABSOLUTE NEUTROPHILS 4.7 thou/uL (1.6-8.1); BASOPHILS 1.3 %; HEMATOCRIT 28.1 % (42.0-52.0); HEMOGLOBIN 9.5 gm/dL (14.0-18.0); LYMPHOCYTES 16.4 %; MCH 29.6 pg (26.0-34.0); MCHC 33.7 g/dL (28.0-37.0); MCV 87.9 fL (80.0-100.0); MONOCYTES 6.5 %; MPV 7.7 fl. (7.2-11.1); NUCLEATED RBCS 0 /100WBC; PLATELET COUNT* 274 thou/uL (150-400); POLYS 72.8 %; WBC 6.5 thou/uL (4.0-11.0)
[2020-06-28 23:11] LABS: CALCIUM 8.7 mg/dL (8.5-10.1); CREATININE 1.9 mg/dL (0.6-1.3); POTASSIUM 4.9 mmol/L (3.5-5.1)
[2020-06-29 00:58] VITALS: BP 134/55
[2020-06-29 04:45] LABS: HEMATOCRIT 28.4 % (42.0-52.0); HEMOGLOBIN 9.5 gm/dL (14.0-18.0); MCH 29.5 pg (26.0-34.0); MCHC 33.6 g/dL (28.0-37.0); MCV 87.8 fL (80.0-100.0); MPV 7.7 fl. (7.2-11.1); RBC 3.23 mil/uL (4.50-6.00); RDW-CV 14.8 % (10.5-14.5); WBC 5.9 thou/uL (4.0-11.0)
[2020-06-29 04:59] LABS: CALCIUM 8.3 mg/dL (8.5-10.1); CREATININE 1.6 mg/dL (0.6-1.3); POTASSIUM 4.6 mmol/L (3.5-5.1)
[2020-06-29 08:16] VITALS: BP 140/41
[2020-06-29 20:26] VITALS: BP 145/32
[2020-06-30 08:00] VITALS: BP 143/46
--- NOTE | 2020-06-30 18:02 | EEG ---
[address] [address] EEG STUDY REPORT Name: DIANE ESTRADA Room: [address] IN M.R.#: [id number] Admission: 06/10/20 Attend Phys: Nicolas Hurd MD Discharge: Date of : 40 Report #: [id number] THIS REPORT FOR: cc: FAM - No family physician/PCP FAM - No family physician/PCP Jose Armando Guzmán MD ~ DOC #: [id number] Jose Armando Guzmán MD DATE OF SERVICE: 06/21/2020 EEG REPORT This patient is being evaluated for altered mental status. EEG was done by placing the electrodes by standard 10-20 system of electrode placement. Both referential and sequential montages were used for recording. Background activity in this patient's EEG is about 7 Hz and 30 microvolt. It is a poorly formed and disorganized activity. The patient went to sleep and that is associated with even more slowing on both sides. Throughout the record, no active epileptiform activity was noticed. IMPRESSION: This is a disorganized and poorly formed activity. That is a nonspecific abnormality which can occur with encephalopathy, effect of psychotropic medication, dementia, etc. Clinical correlation is recommended. MD MAYRA Grey/ROBEL <ELECTRONICALLY SIGNED> By: Jose Armando Guzmán MD 06/30/20 1802 1745 1751Pjoshua Guzmán MD /katty
[2020-06-30 20:12] VITALS: BP 140/56
[2020-07-01 07:54] VITALS: BP 163/58
[2020-07-01 20:22] VITALS: BP 113/53
[2020-07-02 07:18] VITALS: BP 116/54
[2020-07-02 19:00] VITALS: BP 116/39
[2020-07-03 07:52] VITALS: BP 93/49
[2020-07-03 19:45] VITALS: BP 100/33
[2020-07-04 08:30] VITALS: BP 137/44
[2020-07-04 19:00] VITALS: BP 91/48
[2020-07-05 08:22] VITALS: BP 144/45
[2020-07-05 17:25] LABS: URINE BILIRUBIN NEGATIVE (Negative); URINE BLOOD 3+ (Negative); URINE CLARITY SL CLOUDY; URINE COLOR YELLOW; URINE GLUCOSE-RANDOM NEGATIVE (Negative); URINE KETONES NEGATIVE (Negative); URINE LEUKOCYTES-REFLEX NEGATIVE (Negative); URINE NITRITE-REFLEX NEGATIVE (Negative); URINE PROTEIN NEGATIVE (Negative); URINE SPECIFIC GRAVITY 1.015 (1.005-1.030); URINE UROBILINOGEN 0.2 E.U./dl (0.2-1.0)
[2020-07-05 17:32] LABS: URINE RBC >20 Many /HPF (0-2)
[2020-07-05 17:35] LABS: BACTERIA-REFLEX None Seen /HPF (None Seen); CASTS None Seen /LPF (None Seen); CRYSTALS None Seen /LPF (None Seen); MUCUS None Seen strn/LPF (None Seen); SQUAMOUS NONE SEEN /LPF (0-3); URINE WBC-REFLEX None Seen /HPF (0-5)
[2020-07-05 19:00] VITALS: BP 95/45
[2020-07-06 05:23] LABS: HEMATOCRIT 27.1 % (42.0-52.0); HEMOGLOBIN 9.2 gm/dL (14.0-18.0); MCH 29.6 pg (26.0-34.0); MCHC 33.9 g/dL (28.0-37.0); MCV 87.5 fL (80.0-100.0); MPV 7.5 fl. (7.2-11.1); RBC 3.1 mil/uL (4.50-6.00); RDW-CV 14.8 % (10.5-14.5); WBC 5.9 thou/uL (4.0-11.0)
[2020-07-06 05:59] LABS: CALCIUM 8.6 mg/dL (8.5-10.1); CREATININE 1.5 mg/dL (0.6-1.3); POTASSIUM 4.5 mmol/L (3.5-5.1)
[2020-07-06 08:06] VITALS: BP 151/50
[2020-07-06 19:00] VITALS: BP 110/40
[2020-07-07 08:00] VITALS: BP 156/52
[2020-07-07 10:35] LABS: CALCIUM 8.9 mg/dL (8.5-10.1); CREATININE 1.3 mg/dL (0.6-1.3); POTASSIUM 4.2 mmol/L (3.5-5.1)
[2020-07-07 20:18] VITALS: BP 136/35
[2020-07-08 08:32] VITALS: BP 155/39
[2020-07-08 20:04] VITALS: BP 123/36
[2020-07-09 08:00] VITALS: BP 103/46; BP 149/68
[2020-07-09 20:19] VITALS: BP 146/55
[2020-07-10 07:45] VITALS: BP 140/48
[2020-07-10 19:35] VITALS: BP 135/53
[2020-07-11 07:40] VITALS: BP 152/53
[2020-07-11 19:00] VITALS: BP 118/42
[2020-07-12 07:30] VITALS: BP 142/53
[2020-07-12 20:30] VITALS: BP 108/39
[2020-07-13 04:05] LABS: HEMATOCRIT 25.5 % (42.0-52.0); HEMOGLOBIN 8.6 gm/dL (14.0-18.0); MCH 28.9 pg (26.0-34.0); MCHC 33.7 g/dL (28.0-37.0); MCV 85.8 fL (80.0-100.0); MPV 7.6 fl. (7.2-11.1); RBC 2.97 mil/uL (4.50-6.00); RDW-CV 14.7 % (10.5-14.5); WBC 6.5 thou/uL (4.0-11.0)
[2020-07-13 04:27] LABS: CALCIUM 8.9 mg/dL (8.5-10.1); CREATININE 1.3 mg/dL (0.6-1.3); POTASSIUM 3.8 mmol/L (3.5-5.1)
[2020-07-13 07:40] VITALS: BP 128/38
[2020-07-13 20:00] VITALS: BP 112/39
[2020-07-14 08:00] VITALS: BP 138/59
[2020-07-14 20:00] VITALS: BP 129/43
[2020-07-15 08:00] VITALS: BP 124/55
[2020-07-15 19:25] VITALS: BP 140/48
[2020-07-16 07:42] VITALS: BP 129/57
[2020-07-16 19:25] VITALS: BP 113/90
[2020-07-17 07:25] VITALS: BP 131/43
[2020-07-17 20:00] VITALS: BP 109/34
[2020-07-18 07:22] VITALS: BP 127/44
[2020-07-18 08:51] VITALS: BP 127/44
[2020-07-18] MEDS ORDERED: NEURONTIN 300M300 M2 PO (09:18)
[2020-07-18] MEDS ORDERED: TYLENOL EXTRA500 MG PO (09:18)
[2020-07-18] MEDS ORDERED: EXTRA STRENGTH85 GM TOP (09:18)
[2020-07-18] MEDS ORDERED: COLACE100 MG PO (09:18)
[2020-07-18] MEDS ORDERED: IPRAT-ALBUT 0.5-3 ML INH (09:18)
[2020-07-18 12:36] VITALS: BP 127/44
[2020-07-18 19:36] VITALS: BP 103/26
[2020-07-18 21:00] VITALS: BP 116/42
[2020-07-19 19:30] VITALS: BP 124/52
[2020-07-20 05:00] LABS: HEMATOCRIT 24.4 % (42.0-52.0); HEMOGLOBIN 8.5 gm/dL (14.0-18.0); MCH 29.7 pg (26.0-34.0); MCHC 34.6 g/dL (28.0-37.0); MCV 85.8 fL (80.0-100.0); MPV 7.6 fl. (7.2-11.1); RBC 2.85 mil/uL (4.50-6.00); RDW-CV 14.5 % (10.5-14.5); WBC 5.7 thou/uL (4.0-11.0)
[2020-07-20 05:06] LABS: CALCIUM 8.7 mg/dL (8.5-10.1); CREATININE 1.3 mg/dL (0.6-1.3); POTASSIUM 4.2 mmol/L (3.5-5.1)
[2020-07-20 07:50] VITALS: BP 149/61
--- NOTE | 2020-07-20 11:15 | H ---
[place] [address] HISTORY AND PHYSICAL Name: DIANE ESTRADA Room: [address] ADM IN M.R.#: [id number] Admission: 06/10/20 Attend Phys: Nicolas Hurd MD Discharge: Date of : 40 Report #: [id number] THIS REPORT FOR: cc: MAEGAN - Gabriella family physician/PCP MAEGAN - No family physician/PCP Walt Olsen II, DO ~ DOC #: [id number] Walt Olsen II, DO ADMIT DATE: 06/10/2020 INPATIENT CONSULTATION CHIEF COMPLAINT: Bilateral shoulder pain and left foot pain. HISTORY OF PRESENT ILLNESS: The patient is an 80-year-old male with past history of coronary artery disease, gastric ulcers, hypertension, neuropathy, and tobacco use. The patient was at [facility] with dizziness, did show a large subacute ischemic infarct on the right parietal occipital lobe and right intracranial internal carotid artery occlusion. The patient has also had anemia and GI bleed as well as EGD previously done with small hiatal hernia and some gastric ulcers, biopsied. We are consulted for further evaluation of his right shoulder pain on both shoulders as well as his left foot pain from apparent bedsore on the left heel, which the patient is currently in an Unna boot. The pain has lasted for the last several weeks. It has been sharp in nature, does seem to be improved by the Unna boot and shoulders are improved by physical therapy. PAST MEDICAL HISTORY: Right parietooccipital lobe CVA, right intracranial internal carotid artery occlusion, acute GI bleed, gastric ulcer, anemia, coronary artery disease, CABG with recent stenting, history of gastric ulcers, bilateral shoulder pain with x-ray negative, DVT prophylaxis, not currently. REVIEW OF SYSTEMS: A 12-point review of systems was obtained and all negative except for pertinent positives in the HPI as well as acute or weakness secondary to stroke. FAMILY HISTORY: Reviewed and noncontributory. SOCIAL HISTORY: The patient denies tobacco, alcohol or illicit drug use currently. PHYSICAL EXAMINATION: GENERAL: The patient is alert and oriented, in mild distress. EYES: PERRLA. HEENT: Normocephalic. Moist mucous membranes. Nares patent. NECK: Supple, nontender, [place] [address] HISTORY AND PHYSICAL Name: DIANE ESTRADA Room: [address] IN [facility].#: [id number] Admission: 06/10/20 Attend Phys: Nicloas Hurd MD Discharge: Date of : 40 Report #: [id number] RESPIRATORY: Clear to auscultation, nonlabored respirations. No wheezes or rhonchi. HEART: Normal rate, normal rhythm. GASTROINTESTINAL: Soft, nontender, nondistended. GENITOURINARY: No CVA tenderness. LYMPHATICS: No significant lymphadenopathy in head, neck, axilla, or groin. SKIN: Warm and dry. Intact. MUSCULOSKELETAL: The patient does have pain within the shoulders with forward flexion and abduction mainly at the joint line as well as anteriorly. The patient also has a left foot heel ulcer, which is currently being treated with wound evaluation and Unna boot. NEUROLOGIC: The patient is alert and oriented. PSYCHIATRIC: Cooperative. Appropriate mood and affect. IMAGING: X-rays of right ankle without fracture deformity seen. X-ray of the right hip without fracture deformity. X-ray of the bilateral shoulders, show no fracture deformity detected. LABORATORY DATA: As of 07/13 show white blood cell 6.5, hemoglobin 8.6, hematocrit 25.5, platelets 229. Sodium 139, potassium 3.8, chloride 104, carbon dioxide 30, BUN of 32 with creatinine 1.3, glucose 128. ASSESSMENT: 1. An 80-year-old male with a previous cerebrovascular accident. Defective right side. 2. Anemia. 3. Coronary artery disease. 4. History of gastric ulcers. 5. Bilateral shoulder pain. 6. Left heel ulcer. PLAN: At this time, the patient is discussed continuing PT, OT therapies. No fracture is noted on exam and the patient does have full range of motion, though there is some pain in the joints. No extensive erythema or joint distention, no worry for infected joints. The left heel is currently being treated with wound and Unna boot, now recommend discontinuation. The patient is currently on hydrocodone for his acute pain. Recommend continuing this while he continues physical therapy to allow for decrease in his pain, so he is able to participate the wound monitoring for the left heel. We will be available for further evaluation should the patient's symptoms increase or persist for an extended period of time. I appreciate the consultation. Walt Olsen II, [facility]/[place] [address] HISTORY AND PHYSICAL Name: DIANE ESTRADA Room: [address] IN M.R.#: [id number] Admission: 06/10/20 Attend Phys: Nicolas Hurd MD Discharge: Date of : 40 Report #: [id number] <ELECTRONICALLY SIGNED> By: Walt Olsen II, DO 07/20/20 1115 2140 2244Rkim Olsen II, DO /nt
[2020-07-20 19:00] VITALS: BP 123/45
[2020-07-21 07:44] VITALS: BP 137/44
[2020-07-21 20:14] VITALS: BP 111/39
[2020-07-22 08:10] VITALS: BP 133/67
[2020-07-22 08:35] VITALS: BP 133/67
[2020-07-22] MEDS ORDERED: NORCO5 PO ×2 (13:19→13:23)
== END 2020-07-22 16:39 | DRG 64 ==
LOC: M.REH 14:28
PROVIDERS: Internal Medicine; ADMIT Physical Medicine & Rehabilitation; ATTEND Physical Medicine & Rehabilitation
DX: I63.9 Cerebral infarction, unspecified (principal); K25.4 Chronic or unspecified gastric ulcer with hemorrhage; E43 Unspecified severe protein-calorie malnutrition; D62 Acute posthemorrhagic anemia; L97.429 Non-pressure chronic ulcer of left heel and midfoot with unspecified severity; I25.10 Atherosclerotic heart disease of native coronary artery without angina pectoris; D64.9 Anemia, unspecified; M25.512 Pain in left shoulder; M25.511 Pain in right shoulder; I65.21 Occlusion and stenosis of right carotid artery; I10 Essential (primary) hypertension; G62.9 Polyneuropathy, unspecified; R33.9 Retention of urine, unspecified; Z95.5 Presence of coronary angioplasty implant and graft; Z95.1 Presence of aortocoronary bypass graft; Z68.20 Body mass index [BMI] 20.0-20.9, adult; Z91.19 Patient's noncompliance with other medical treatment and regimen; Z88.8 Allergy status to other drugs, medicaments and biological substances; Z88.6 Allergy status to analgesic agent

== ENCOUNTER 2020-08-04 19:12 | Inpatient (IN) | payer OTHER, MEDICAID ==
[~2020-08-04] VITALS: Ht 172.7 cm; Wt 63.2 kg
[~2020-08-04 19:12] MED LIST changes: +COLACE100 MG PO; +IPRAT-ALBUT 0.5-3 ML INH; +NEURONTIN 300M300 M2 PO; +NORCO5 PO; +TYLENOL EXTRA500 MG PO
[2020-08-04 19:17] VITALS: BP 118/43
[2020-08-04 19:32] LABS: ABSOLUTE BASOPHILS 0.1 thou/uL (0.0-0.2); ABSOLUTE EOSINOPHILS 0.1 thou/uL (0.0-0.7); ABSOLUTE LYMPHOCYTES 0.7 thou/uL (0.8-5.3); ABSOLUTE MONOCYTES 0.5 thou/uL (0.0-1.2); ABSOLUTE NEUTROPHILS 7.4 thou/uL (1.6-8.1); BASOPHILS 0.8 %; EOSINOPHILS 1.1 %; HEMATOCRIT 22.5 % (42.0-52.0); HEMOGLOBIN 7.6 gm/dL (14.0-18.0); LYMPHOCYTES 7.9 %; MCH 29.2 pg (26.0-34.0); MCHC 33.8 g/dL (28.0-37.0); MCV 86.2 fL (80.0-100.0); MPV 8.3 fl. (7.2-11.1); NUCLEATED RBCS 0 /100WBC; PLATELET COUNT* 182 thou/uL (150-400); POLYS 84.2 %; RBC 2.61 mil/uL (4.50-6.00); RDW-CV 15.2 % (10.5-14.5); WBC 8.8 thou/uL (4.0-11.0)
[2020-08-04 19:41] LABS: CALCIUM 7.9 mg/dL (8.5-10.1); CREATININE 2.1 mg/dL (0.6-1.3); POTASSIUM 3.9 mmol/L (3.5-5.1)
[2020-08-04 19:43] LABS: URINE BILIRUBIN NEGATIVE (Negative); URINE BLOOD NEGATIVE (Negative); URINE CLARITY CLEAR; URINE COLOR YELLOW; URINE GLUCOSE-RANDOM NEGATIVE (Negative); URINE KETONES NEGATIVE (Negative); URINE LEUKOCYTES-REFLEX NEGATIVE (Negative); URINE NITRITE-REFLEX NEGATIVE (Negative); URINE PROTEIN NEGATIVE (Negative); URINE SPECIFIC GRAVITY 1.015 (1.005-1.030); URINE UROBILINOGEN 0.2 E.U./dl (0.2-1.0)
[2020-08-04 19:45] LABS: ALBUMIN 2.2 g/dL (3.4-5.0); MAGNESIUM 1.7 mg/dL (1.8-2.4); TOTAL BILIRUBIN 0.4 mg/dL (<0.1-1.0); TOTAL PROTEIN 6.4 g/dL (6.4-8.2)
[2020-08-04 20:36] LABS: BE -7.4 mmol/L (-2 to +3); PCO2 39.9 mmHg (35.0-45.0); PO2 90.7 mmHg (75.0-100.0)
[2020-08-04 20:39] LABS: pH 7.287 (7.340-7.450)
[2020-08-04 22:20] VITALS: BP 107/50
[2020-08-04 22:45] VITALS: BP 129/50
[2020-08-05] VITALS (7 sets, daily range): BP systolic 96–148; BP diastolic 28–85
[2020-08-05 05:10] LABS: HEMATOCRIT 22.2 % (42.0-52.0); HEMOGLOBIN 7.7 gm/dL (14.0-18.0)
--- NOTE | 2020-08-05 06:10 | NUR ---
PT ADMITTED TO ROOM 203 DURING THIS SHIFT; VSS, 5LO2 NC, BEDREST, MARIE IN PLACE. HE IS ABLE TO COMMUNICATE HIS NEEDS TO STAFF WITH SOME DIFFICULTY; HE IS CONFUSED AND SOMEWHAT DISORIENTED, WELL DROWSY. HE HAS DENIED THE NEED FOR PAIN MEDICATION UP TO THIS TIME. MARIE HAS BEEN PATENT UP TO THIS TIME. HE HAS BEEN NPO SINCE MIDNIGHT PER ORDER.
--- NOTE | 2020-08-05 10:55 | EKG ---
[place] [address] ELECTROCARDIOGRAM REPORT Name: DIANE ESTRADA Room: [address] ADM IN ..#: [id number] Admission: 08/04/20 Attend Phys: Nicolas Wiley, Discharge: Date of : 40 Date of Service: 08/04/201918 Report #: [id number] THIS REPORT FOR: //name// [facility] ED Test Date: 2020-08-04 Test Time: 19:19:22 Pat Name: DIANE ESTRADA Department: Room: [facility] Gender: M Pilot Safety Inspector: [place] : 1940 Requested By: Clarisse Escalante Order Number: [id number] MD: Carlos A Nunez Measurements Intervals [place] Rate: 86 P: 56 MN: 193 QRS: 38 QRSD: 81 T: 42 QT: 385 QTc: 461 Interpretive Statements Sinus rhythm Anterior precordial ST-T abnormality; ischemia must be considered Compared to ECG 06/04/2020 09:04:01 Early repolarization now present Anterior ST segment depression compatible with ischemia is noted Electronically Signed On 08-05-2020 10:55:28 CDT by Carlos A Nunez [email or web address] <ELECTRONICALLY SIGNED> By: Carlos A Nunez MD, [facility] 08/05/20 1055 18 18 Carlos A Nunez MD, [facility] /EPI
--- NOTE | 2020-08-05 14:13 | NUR ---
Pt is a LTC resident at [facility], CM spoke with [facility] they are able to accept Pt back at dc. Pt recently dc from [facility]U to LTC. Hx of [facility]. Goal is back to LTC at dc. CM left VM for Pt's son, await call back. Anticipate dc in a few days. Plan to adjust BP meds, neuro consult, monitor hbg-GI consulted. CM faxed clinicals to [facility], they are able to accept Pt back over the weekend if medically stable. Transportation will need to be arranged, if wc van, contact [facility] [phone]. [facility] p:[phone] f:[phone]
[2020-08-05 14:47] LABS: CALCIUM 8.1 mg/dL (8.5-10.1); CREATININE 1.5 mg/dL (0.6-1.3); POTASSIUM 3.4 mmol/L (3.5-5.1); TOTAL BILIRUBIN 0.2 mg/dL (<0.1-1.0); TOTAL PROTEIN 6.1 g/dL (6.4-8.2)
--- NOTE | 2020-08-05 17:08 | NUR ---
RECEIVED REPORT AROUND 0715. ASSUMED CARE. VS AND ASSESSMENT CHARTED. MEDS GIVEN PER APR. DIALSTOLIC BP ON THE SOFTER SIDE. PT STABLE. ATE MEALS THIS SHIFT. HAS BEEN ON THE SLEEPIER SIDE. AROUSABLE THOUGH. 1.5L NC. PT Q2 TURNS. SET UP MEALS. HOURLY ROUNDING PERFORMED. LEFT VOICEMAIL FOR SON. TOLD TO CALL BACK IF ANY QUESTIONS. CALL LIGHT WITH IN REACH. WILL CONTINUE TO MONITOR.
[2020-08-06 02:06] LABS: GLYCOHEMOGLOBIN (HGB A1C) 6.3 % (4.8-5.6)
[2020-08-06 05:30] VITALS: BP 121/38
--- NOTE | 2020-08-06 06:00 | NUR ---
PT'S DIASTOLIC BP WAS IN THE 20'S LAST NIGHT WELL SLIGHTLY LOW POTASSIUM. DR NOTIFIED. FLUID BOLUS ORDERED. EFFECTIVE.
[2020-08-06 06:20] LABS: HEMATOCRIT 20.6 % (42.0-52.0); HEMOGLOBIN 7.1 gm/dL (14.0-18.0); MCH 29.2 pg (26.0-34.0); MCHC 34.7 g/dL (28.0-37.0); MCV 84.2 fL (80.0-100.0); MPV 8.3 fl. (7.2-11.1); NUCLEATED RBCS 0 /100WBC; PLATELET COUNT* 156 thou/uL (150-400); RBC 2.44 mil/uL (4.50-6.00); RDW-CV 15.1 % (10.5-14.5); WBC 6.9 thou/uL (4.0-11.0)
[2020-08-06 06:31] LABS: CALCIUM 7.9 mg/dL (8.5-10.1); CREATININE 1.4 mg/dL (0.6-1.3); POTASSIUM 3.6 mmol/L (3.5-5.1)
[2020-08-06 06:34] LABS: CHOLESTEROL 84 mg/dL (<200); HDL CHOLESTEROL 38 mg/dL (>40); LDL CHOLESTEROL 39 mg/dL (<100); TC:HDL 2.2 Ratio (Not establshd); TRIGLYCERIDE 37 mg/dL (<150); VLDL 7 mg/dL (<40)
[2020-08-06 06:37] LABS: SERUM ASSESSMENT CLEAR
[2020-08-06 07:21] LABS: ABSOLUTE EOSINOPHILS 0.1 thou/uL (0.0-0.7); ABSOLUTE LYMPHOCYTES 0.6 thou/uL (0.8-5.3); ABSOLUTE MONOCYTES 0.1 thou/uL (0.0-1.2); ABSOLUTE NEUTROPHILS 6.2 thou/uL (1.6-8.1); HYPOCHROMASIA 2+; PLATELET ESTIMATE ADEQUATE
[2020-08-06 07:22] LABS: MICROCYTES Occasional
[2020-08-06 08:00] VITALS: BP 110/34
[2020-08-06 11:58] VITALS: BP 111/36
[2020-08-06 16:43] VITALS: BP 118/34
--- NOTE | 2020-08-06 17:25 | NUR ---
RECEIVED REPORT AROUND 0715. ASSUMED CARE. VS AND ASSESSMENT CHARTED. IV INTACT. HEART MONITOR ATTACHED AT SR. PT SAT UP IN CHAIR FOR A WHILE THIS SHIFT. BARRIER CREAM PUT ON LEFT HEEL. HEELS FLOATED. PT BACK IN BED NOW. EATING DINNER. MEDS GIVEN PER APR. HOURLY ROUNDING PERFORMED. Q2 TURNS. PLEASANTLY CONFUSED THIS SHIFT. PHYSICAL THERAPY AND OT WORKED WITH PT THIS SHIFT. PAIN THIS AM. CALL LIGHT WITH IN REACH. WILL CONTINUE TO MONITOR.
[2020-08-07 00:25] VITALS: BP 114/49
[2020-08-07 02:24] VITALS: BP 122/77
[2020-08-07 04:07] VITALS: BP 107/45
[2020-08-07 08:00] VITALS: BP 135/48
[2020-08-07 10:43] LABS: CALCIUM 8.5 mg/dL (8.5-10.1); CREATININE 1.2 mg/dL (0.6-1.3); POTASSIUM 3.6 mmol/L (3.5-5.1)
[2020-08-07 10:44] LABS: ABSOLUTE EOSINOPHILS 0.1 thou/uL (0.0-0.7); ABSOLUTE LYMPHOCYTES 0.7 thou/uL (0.8-5.3); ABSOLUTE MONOCYTES 0.4 thou/uL (0.0-1.2); ABSOLUTE NEUTROPHILS 5.6 thou/uL (1.6-8.1); BASOPHILS 0.2 %; EOSINOPHILS 1.7 %; HEMATOCRIT 23.9 % (42.0-52.0); HEMOGLOBIN 8.3 gm/dL (14.0-18.0); MCH 29.4 pg (26.0-34.0); MCHC 34.6 g/dL (28.0-37.0); MCV 84.9 fL (80.0-100.0); MONOCYTES 5.9 %; MPV 8.4 fl. (7.2-11.1); NUCLEATED RBCS 0 /100WBC; PLATELET COUNT* 182 thou/uL (150-400); POLYS 82.2 %; RBC 2.81 mil/uL (4.50-6.00); RDW-CV 15.1 % (10.5-14.5); WBC 6.8 thou/uL (4.0-11.0)
[2020-08-07 11:11] VITALS: BP 110/40
--- NOTE | 2020-08-07 11:16 | NUR ---
RECEIVED REPORT AROUND 0715. ASSUMED CARE. VS AND ASSESSMENT CHARTED. IV ITNACT. HEART MONITOR ATTACHED SR/ST WITH PVC'S. PT UP IN CHAIR NOW. MEDS GIVEN PER APR. NO PAIN THIS AM. DENTURES BRUSHED THIS AM. LEGS ELEVATED. CARDIOLOGY TOLD ABOUT TACHYCARDIA. PT OFF O2 THIS AM. CALL LIGHT WITH IN REACH. WILL CONTINUE TO MONITOR.
[2020-08-07 15:38] VITALS: BP 120/45
--- NOTE | 2020-08-07 18:09 | NUR ---
no new changes. IV INTACT. HEART MONITOR ATTACHED AT SR/ST. PT UP IN CHAIR NOW. MEDS GIVEN PER APR. HOURLY ROUNDING PERFORMED. POSSIBLE D/C TOMORROW. STAYED OFF O2 THIS SHIFT. CALL LIGHT WITH IN REACH. WILL CONTINUE TO MONITOR.
[2020-08-08 04:23] LABS: HEMATOCRIT 21.5 % (42.0-52.0); HEMOGLOBIN 7.5 gm/dL (14.0-18.0); MCH 29.2 pg (26.0-34.0); MCHC 34.9 g/dL (28.0-37.0); MCV 83.8 fL (80.0-100.0); MPV 8.4 fl. (7.2-11.1); RBC 2.57 mil/uL (4.50-6.00); RDW-CV 14.7 % (10.5-14.5)
[2020-08-08 04:37] LABS: CALCIUM 8.1 mg/dL (8.5-10.1); CREATININE 1.1 mg/dL (0.6-1.3); POTASSIUM 3.6 mmol/L (3.5-5.1)
[2020-08-08 04:45] VITALS: BP 115/45
[2020-08-08 08:00] VITALS: BP 125/54
[2020-08-08 12:00] VITALS: BP 125/55
--- NOTE | 2020-08-08 13:11 | NUR ---
Pt discharging back to [facility] today. [facility] to pharmacy picking tech and transport b/t [phone]. Chart copied. Nurse report number is [phone]. DC orders sent with Pt in chart copy.
[2020-08-08 21:06] LABS: ANA INTERPRETATION Negative (())
== END 2020-08-08 17:34 | DRG 682 ==
LOC: M.ERS 19:12 → M.2W 20:51 → M.TBA-ER 20:51 → M.2W 22:30
PROVIDERS: Emergency Medicine; Internal Medicine; Psychiatry & Neurology Neuromuscular Medicine; ADMIT Internal Medicine; ATTEND Internal Medicine
PROC: 5A0935A Assistance with Respiratory Ventilation, Less than 24 Consecutive Hours, High Flow/Velocity Cannula (ICD-10-PCS; principal; 2020-08-05)
DX: N17.0 Acute kidney failure with tubular necrosis (principal); G93.41 Metabolic encephalopathy; E43 Unspecified severe protein-calorie malnutrition; J96.01 Acute respiratory failure with hypoxia; D62 Acute posthemorrhagic anemia; I25.10 Atherosclerotic heart disease of native coronary artery without angina pectoris; G62.9 Polyneuropathy, unspecified; F17.210 Nicotine dependence, cigarettes, uncomplicated; I12.9 Hypertensive chronic kidney disease with stage 1 through stage 4 chronic kidney disease, or unspecified chronic kidney disease; N18.9 Chronic kidney disease, unspecified; I95.1 Orthostatic hypotension; E86.0 Dehydration; I73.9 Peripheral vascular disease, unspecified; R00.1 Bradycardia, unspecified; E78.5 Hyperlipidemia, unspecified; Z20.822 Contact with and (suspected) exposure to COVID-19; Z86.73 Personal history of transient ischemic attack (TIA), and cerebral infarction without residual deficits; Z95.1 Presence of aortocoronary bypass graft; Z79.82 Long term (current) use of aspirin; Z79.01 Long term (current) use of anticoagulants; Z79.899 Other long term (current) drug therapy; Z88.5 Allergy status to narcotic agent; Z68.21 Body mass index [BMI] 21.0-21.9, adult

== ENCOUNTER 2020-10-14 16:58 | Inpatient (IN) | payer OTHER, MEDICAID ==
[~2020-10-14] VITALS: Ht 160 cm; Wt 57.6 kg
[2020-10-14 17:01] VITALS: BP 112/40
[2020-10-14 17:34] LABS: URINE BILIRUBIN NEGATIVE (Negative); URINE BLOOD NEGATIVE (Negative); URINE CLARITY CLEAR; URINE COLOR YELLOW; URINE GLUCOSE-RANDOM NEGATIVE (Negative); URINE KETONES NEGATIVE (Negative); URINE LEUKOCYTES-REFLEX NEGATIVE (Negative); URINE NITRITE-REFLEX NEGATIVE (Negative); URINE PROTEIN 1+ (Negative); URINE SPECIFIC GRAVITY 1.025 (1.005-1.030); URINE UROBILINOGEN 0.2 E.U./dl (0.2-1.0)
[2020-10-14 18:41] LABS: ABSOLUTE LYMPHOCYTES 0.4 thou/uL (0.8-5.3); ABSOLUTE MONOCYTES 0.2 thou/uL (0.0-1.2); ABSOLUTE NEUTROPHILS 2.1 thou/uL (1.6-8.1); BASOPHILS 0.6 %; HEMOGLOBIN 8.9 gm/dL (14.0-18.0); LYMPHOCYTES 14.6 %; MCHC 32.8 g/dL (28.0-37.0); MCV 82.3 fL (80.0-100.0); MONOCYTES 5.6 %; NUCLEATED RBCS 0 /100WBC; PLATELET COUNT* 139 thou/uL (150-400); POLYS 79.2 %; RBC 3.28 mil/uL (4.50-6.00); RDW-CV 18.4 % (10.5-14.5); WBC 2.7 thou/uL (4.0-11.0)
[2020-10-14 18:51] LABS: CALCIUM 7.4 mg/dL (8.5-10.1); CREATININE 1.5 mg/dL (0.6-1.3); POTASSIUM 3.5 mmol/L (3.5-5.1)
[2020-10-14 19:04] LABS: TOTAL BILIRUBIN 0.3 mg/dL (<0.1-1.0); TOTAL PROTEIN 6.1 g/dL (6.4-8.2)
[2020-10-14 22:00] VITALS: BP 99/34
[2020-10-14 22:15] VITALS: BP 103/35
[2020-10-15 04:28] VITALS: BP 140/51
[2020-10-15 08:15] VITALS: BP 125/41
--- NOTE | 2020-10-15 14:24 | EKG ---
[place] [address] ELECTROCARDIOGRAM REPORT Name: DIANE ESTRADA Room: [address] ADM IN ..#: [id number] Admission: 10/14/20 Attend Phys: Bridgett Costello, Discharge: Date of : 40 Date of Service: 10/14/20 1707 Report #: [id number] THIS REPORT FOR: //name// [facility] ED Test Date: 2020-10-14 Test Time: 17:07:34 Pat Name: DIANE ESTRADA Department: Room: [facility] Gender: M [place] Operator: LEONEL : 1940 Requested By: Dung Appiah Order Number: [id number] MD: Manuel Keith Measurements Intervals [place] Rate: 72 P: 64 KS: 149 QRS: 40 QRSD: 81 T: 56 QT: 383 QTc: 420 Interpretive Statements Sinus rhythm Borderline low voltage, extremity leads Baseline wander in lead(s) II,III,aVL,aVF Compared to ECG 08/04/2020 19:19:22 ST (T wave) deviation no longer present Possible ischemia no longer present Electronically Signed On 10-15-2020 14:24:10 CDT by Manuel Keith [email or web address] <ELECTRONICALLY SIGNED> By: Manuel Keith MD, [facility] 10/15/20 1424 1707 1707 Manuel Keith MD, [facility] /EPI
[2020-10-15 19:39] VITALS: BP 100/31
[2020-10-15 20:00] VITALS: BP 124/41
[2020-10-16 00:11] VITALS: BP 99/35
[2020-10-16 04:45] LABS: HEMATOCRIT 26.5 % (42.0-52.0); HEMOGLOBIN 8.7 gm/dL (14.0-18.0); MCH 26.6 pg (26.0-34.0); MCHC 32.7 g/dL (28.0-37.0); MCV 81.4 fL (80.0-100.0); MPV 8.8 fl. (7.2-11.1); RBC 3.26 mil/uL (4.50-6.00); RDW-CV 18.1 % (10.5-14.5); WBC 5.1 thou/uL (4.0-11.0)
[2020-10-16 04:49] VITALS: BP 117/37
[2020-10-16 05:02] LABS: CALCIUM 7.4 mg/dL (8.5-10.1); CREATININE 1.1 mg/dL (0.6-1.3); POTASSIUM 4.1 mmol/L (3.5-5.1)
[2020-10-16 08:00] VITALS: BP 123/60
== END 2020-10-16 16:45 | DRG 177 ==
LOC: M.ERS 16:58 → M.ORTHSURG 18:36 → M.TBA-ER 18:36 → M.ORTHSURG 22:19
PROVIDERS: Family Medicine; ADMIT Internal Medicine; ATTEND Internal Medicine
DX: U07.1 COVID-19 (principal); E43 Unspecified severe protein-calorie malnutrition; N17.0 Acute kidney failure with tubular necrosis; J12.82 Pneumonia due to coronavirus disease 2019; G62.9 Polyneuropathy, unspecified; E88.09 Other disorders of plasma-protein metabolism, not elsewhere classified; I25.10 Atherosclerotic heart disease of native coronary artery without angina pectoris; I10 Essential (primary) hypertension; Z87.11 Personal history of peptic ulcer disease; Z86.73 Personal history of transient ischemic attack (TIA), and cerebral infarction without residual deficits; Z88.6 Allergy status to analgesic agent; Z68.22 Body mass index [BMI] 22.0-22.9, adult; Z95.1 Presence of aortocoronary bypass graft; Z79.899 Other long term (current) drug therapy